=== PATIENT | male | born 1970 | race Caucasian/White ===

== ENCOUNTER 2020-10-18 | Outpatient (REF) | payer OTHER, SELFPAY ==
[2020-10-19 11:26] LABS: Creatinine Urine 137.45 mg/dL; Microalbum/Creatinine Ratio Ur 6.5 ug/mg cr
== END 2020-10-18 00:01 | disposition home or self-care (01) ==
LOC: HO.LNP
PROVIDERS: Visit Provider Family Medicine
DX: E11.9 Type 2 diabetes mellitus without complications (principal)
CPT/HCPCS: 82043

== ENCOUNTER 2020-10-19 10:34 | Outpatient (REF) | payer OTHER, SELFPAY | END 2020-10-19 10:35 | disposition home or self-care (01) | LOC: HO.LNP 10:34 | PROVIDERS: Visit Provider Family Medicine | DX: Z13.89 Encounter for screening for other disorder (principal) ==

== ENCOUNTER 2021-06-11 10:06 | Outpatient (REF) | payer OTHER, SELFPAY ==
[2021-06-11 11:41] LABS: Estimated Average Glucose 220 mg/dL; Hemoglobin A1c % 9.3 %
[2021-06-11 12:31] LABS: Alanine Aminotransferase 21 U/L (0-40); Albumin Level 4.5 g/dL (3.5-5.0); Alkaline Phosphatase 109 U/L (39-117); Anion Gap 10 (12-20); Aspartate Amino Transferase 18 U/L (5-37); Bilirubin Total 0.5 mg/dL (0.0-1.0); Blood Urea Nitrogen 16 mg/dL (9-16); Calcium 9.7 mg/dL (8.4-10.2); Carbon Dioxide 28 mmol/L (22-29); Chloride 105 mmol/L (96-108); Estimated Glomerular Filt Rate > 60; Glucose Random 275 mg/dL (60-115); Potassium 4.5 mmol/L (3.3-5.1); Sodium 138 mmol/L (135-145); Total Protein 7.5 g/dL (6.5-8.0)
== END 2021-06-11 10:07 | disposition home or self-care (01) ==
LOC: HO.WFDLDS 10:06
PROVIDERS: Visit Provider Family Medicine
DX: E11.65 Type 2 diabetes mellitus with hyperglycemia (principal)
CPT/HCPCS: 36415; 80053; 83036

== ENCOUNTER 2021-08-27 09:53 | Outpatient (REF) | payer OTHER, SELFPAY ==
[2021-08-27 12:51] LABS: Estimated Average Glucose 226 mg/dL; Hemoglobin A1c % 9.5 %
== END 2021-08-27 09:54 | disposition home or self-care (01) ==
LOC: HO.WFDLDS 09:53
PROVIDERS: Visit Provider Family Medicine
DX: Z00.00 Encounter for general adult medical examination without abnormal findings (principal); R73.01 Impaired fasting glucose
CPT/HCPCS: 36415; 83036

== ENCOUNTER → 2022-07-31 08:30 | Outpatient (BNVA) | payer OTHER, SELFPAY | PROVIDERS: PCP Family Medicine; Visit Provider Internal Medicine Endocrinology, Diabetes & Metabolism | DX: E11.65 Type 2 diabetes mellitus with hyperglycemia (principal) | CPT/HCPCS: 82947 ==

== ENCOUNTER 2022-08-01 10:22 | Outpatient (REF) | payer OTHER, SELFPAY ==
[2022-08-01 14:29] LABS: Anion Gap 12 (12-20); Blood Urea Nitrogen 20 mg/dL (9-16); Calcium 9.2 mg/dL (8.4-10.2); Carbon Dioxide 24 mmol/L (22-29); Chloride 103 mmol/L (96-108); Cholesterol 109 mg/dL; Estimated Glomerular Filt Rate > 60; Glucose Random 121 mg/dL (60-115); HDL Cholesterol 28 mg/dL; LDL Cholesterol Calculated 60 mg/dl; Potassium 4.1 mmol/L (3.3-5.1); Sodium 135 mmol/L (135-145); Triglycerides 108 mg/dL
[2022-08-01 14:44] LABS: Creatinine Urine 145.01 mg/dL; Microalbum/Creatinine Ratio Ur 8.2 ug/mg cr
[2022-08-07 17:33] LABS: Glutamic acid decarboxylase Ab <5 IU/mL (<5)
== END 2022-08-01 10:23 | disposition home or self-care (01) ==
LOC: HO.10HDL 10:22
PROVIDERS: Visit Provider Internal Medicine Endocrinology, Diabetes & Metabolism
DX: E11.65 Type 2 diabetes mellitus with hyperglycemia (principal)
CPT/HCPCS: 36415; 80048; 80061; 82043; 86341

== ENCOUNTER → 2022-11-12 07:36 | Outpatient (BNVA) | payer OTHER, SELFPAY | PROVIDERS: PCP Family Medicine; Visit Provider Internal Medicine Endocrinology, Diabetes & Metabolism | DX: E11.65 Type 2 diabetes mellitus with hyperglycemia (principal) | CPT/HCPCS: 82947; 83036 ==

== ENCOUNTER → 2022-11-17 09:33 | Outpatient (BNVA) | payer OTHER, SELFPAY | PROVIDERS: PCP Family Medicine; Visit Provider Dietitian, Registered | DX: E11.65 Type 2 diabetes mellitus with hyperglycemia (principal) | CPT/HCPCS: 97802 ==

== ENCOUNTER → 2022-12-11 09:03 | Outpatient (BNVA) | payer OTHER, SELFPAY | PROVIDERS: PCP Family Medicine; Visit Provider Dietitian, Registered | DX: E11.65 Type 2 diabetes mellitus with hyperglycemia (principal) | CPT/HCPCS: 97803 ==

== ENCOUNTER → 2023-02-17 08:14 | Outpatient (BNVA) | payer OTHER, SELFPAY | PROVIDERS: PCP Family Medicine; Visit Provider Internal Medicine Endocrinology, Diabetes & Metabolism | DX: E11.65 Type 2 diabetes mellitus with hyperglycemia (principal) | CPT/HCPCS: 82947; 83036 ==

== ENCOUNTER 2023-03-12 09:22 | Outpatient (AMB) | payer OTHER, SELFPAY ==
[2023-03-12 09:36] VITALS: BMI 35.1
--- NOTE | 2023-03-12 09:36 | A.OFFVIS_ITS ---
Intake VS Expanded 03/12/23 09:36 Height 5 ft 7 in Weight 223 lb 15.834 oz BMI 35.1 Intake Visit Reasons: DM2 Allergies No Known Allergies Allergy (Verified 03/16/23 09:09) HPI Nutrition Presentation Details Pt presents MNT f/u for T2DM Pt doing well, working on meal planning with good glycemic control Reports keeping physically active 1 hr 3 times a week at least low BG 0-1 x/wk , treats by following rule of 15 food frequency fluid intake: water , coffee/milk , juices diluted with water > 64 oz /d fried foods 0-1/x/wk fruits: 2-3 /d nons tarchy ve serving/d dairy 0-1/d protein: fish twice/wk, poultry , beef 1 x/wk starches : variety, reports including whole grain foods , 15-20 serving/d Most Recent Diabetes Results: Microalb/Creat Ratio 8.2 ug/mg cr 08/01/22 Cholesterol 109 mg/dL 08/01/22 HDL Cholesterol 28 mg/dL 08/01/22 Triglycerides 108 mg/dL 08/01/22 Creatinine 1.12 mg/dL (0.5-1.4) 08/01/22 Blood Urea Nitrogen 20 mg/dL (9-16) H 08/01/22 Sodium 135 mmol/L (135-145) 08/01/22 Potassium 4.1 mmol/L (3.3-5.1) 08/01/22 Chloride 103 mmol/L (96-108) 08/01/22 Carbon Dioxide 24 mmol/L (22-29) 08/01/22 Calcium 9.2 mg/dL (8.4-10.2) 08/01/22 [facility] Medical History No pertinent past medical history Surgical History No pertinent past surgical history Family History (Updated 03/16/23 @ 09:13 by Iman Carrillo MA) Father No problems noted. Mother Diabetes mellitus Brother No problems noted. Brother No problems noted. Sister No problems noted. Sister No problems noted. Daughter No problems noted. Daughter No problems noted. 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 Pt's set goal (Date: 11/17/2022 ): Reduce carbohydrate to 75 g at dinner following healthy plate method at follow up (Date:12/11/21 ): Per Pt met 100% Used wt : 105 kg (103 kg 12/11/21), 102 kg (02/2023) Est kcal as per MSJ: 2242 (40% carb, 30% fat/prot) Est fluid needs: 2625 ml/d (25 ml/kg bw) Rec fiber: increase to 8-10 g per day and gradually increase as tolerated , goal 35 g per day Rec Na: < 2000 mg /d Educate patient on: (R= Reviewed, V = verbalizes understanding N/R= Needs review N/A= not applicable) * Food sources of carbohydrates and serving adequate serving sizes : R V * Difference between complex carbohydrates and simple carbohydrates, role of fiber: R V * Differences between fats (MUFA/PUFA/saturated fats, trans fats) and food sources of various fats: R , V * Food sources of sodium and salt and healthy modifications for heart health and kidney health: R, v * Vitamins and minerals: R, V * How to interpret food labels: R , V * Healthy Plate method concept: R , V * Physical activity: benefits and precaution: R, V Patient Instructions: Continue following healthy plate method Keep hydrated by having water with meals Reduce intake of saturated fats in diet Treat low blood glucose by following rule of 15, carry glucose tablets with you, report low blood glucose to your doctor for further assessment. Coding Level of Care Code Nutr Indiv Subseq (87120) Diagnoses Diabetes type 2, uncontrolled E11.65 Time Spent (min) 30
== END 2023-03-12 09:49 | disposition home or self-care (01) ==
PROVIDERS: PCP Family Medicine; Visit Provider Dietitian, Registered
DX: E11.65 Type 2 diabetes mellitus with hyperglycemia (principal)

== ENCOUNTER → 2023-03-12 09:22 | Outpatient (BNVA) | payer OTHER, SELFPAY | PROVIDERS: Visit Provider Dietitian, Registered | DX: E11.65 Type 2 diabetes mellitus with hyperglycemia (principal); Z71.3 Dietary counseling and surveillance | CPT/HCPCS: 97803 ==

== ENCOUNTER 2023-03-16 08:45 | Outpatient (AMB) | payer OTHER, SELFPAY ==
[2023-03-16 09:05] VITALS: BP 126/74; PULSE 86; RESP 12; TEMP 36.4; O2SAT 98; BMI 34.8
--- NOTE | 2023-03-16 09:05 | MHC.PC.OV ---
Vital Signs 03/16/23 09:05 Height 5 ft 7 in Weight 222 lb 2 oz BMI 34.8 BP 126/74 Blood Pressure Location Lt brachial Position Sitting Respiration 12 Pulse 86 Pulse Source Pulse Oximeter Temp 97.6 F Temp Source Temporal Artery Scan Pulse Oximetry (%) 98 Oxygen Delivery Method Room Air Intake Visit Reasons: CPE with f/u labs and health maint. Replenishment Buyer Required: No Accompanied by: Self / Same As Patient Allergies No Known Allergies Allergy (Verified 03/16/23 09:09) Tobacco use date assessed: 07/17/22 Dental Screening Dental Screen Date: 03/16/23 Did you have a dental visit in the last 12 months?: No Did you have a dental problem in the last 6 months where you did not have access to dental care?: No Was dental information given to patient?: Yes HPI CPE with f/u labs and health maint. HPI Details 52 y/o male presents for a CPE with f/u labs and health maintenance. Had seen Dr. Louis 02/17/23 for his diabetes. A1c then 5.8%. He is being treated with glipzide, metformin and Trulicity. No recent labs to review. 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 He states he has been exercising mostly every day. He walks about 10 miles a day. He states he has not had a colonoscopy yet. He reports a skin tag on his R axilla which has been causing him some discomfort. [facility] Medical History No pertinent past medical history Surgical History No pertinent past surgical history Family History (Updated 03/16/23 @ 09:13 by Iman Carrillo MA) Father No problems noted. Mother Diabetes mellitus Brother No problems noted. Brother No problems noted. Sister No problems noted. Sister No problems noted. Daughter No problems noted. Daughter No problems noted. 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 Liam Momin, Ericka Montesinos, Moses Anand and colleagues, with an educational tai from [employer]. Review of Systems Const Denies chills, Denies fatigue, Denies fever(s), Denies headache(s) and Denies weakness Eyes Denies change in vision ENT Denies dizziness, Denies headache(s), Denies hearing loss, Denies nasal congestion, Denies sinus pain, Denies sinus pressure and Denies sore throat Card Denies chest pain, Denies lightheadedness, Denies dyspnea and Denies other (palpitations) Resp Denies cough, Denies dyspnea and Denies wheezing GI Denies abdominal pain, Denies melena, Denies hematochezia, Denies change in bowel habits, Denies dyspepsia and Denies nausea Denies hematuria and Denies dysuria Musc Denies abnormal gait, Denies myalgias, Denies arthralgias, Denies numbness and Denies tingling Skin/Breast Denies rash, Denies unusual bruising and Denies wounds Neuro Denies abnormal gait, Denies dizziness, Denies headache(s), Denies memory loss, Denies numbness, Denies Sensory deficit (Neuro), Denies tingling and Denies weakness Psych Denies anxiety, Denies depression and Denies memory loss Endo Denies cold intolerance, Denies fatigue, Denies heat intolerance, Denies polydipsia and Denies polyuria Jesus/Lymph Denies easy bleeding and Denies easy bruising Aller/Immun Denies wheezing Physical exam (Primary Care) Vital Signs: Last Vital Signs Temp 97.6 F 03/16/23 09:05 Pulse 86 03/16/23 09:05 Resp 12 03/16/23 09:05 BP 126/74 03/16/23 09:05 Pulse Ox 98 03/16/23 09:05 Oxygen Delivery Method Room Air 03/16/23 09:05 BMI result Body Mass Index 34.8 Tobacco/Smoking Status: Tobacco use Status Tobacco use date assessed 07/17/22 03/16/23 09:13 Patient Tobacco Use Status Former Tobacco user 03/16/23 09:13 Tobacco use type Cigarette 03/16/23 09:13 e-Cigarette/Vaping Use Never Used 03/16/23 09:13 Thrive Assessment: Date of Thrive Assessment Date Thrive assessed 07/17/22 03/16/23 09:13 Const General: no acute distress, well developed, alert and awake Nutritional Appearance: well nourished Orientation/consciousness: patient oriented x3 HENMT Head: Yes normocephalic and Yes atraumatic Ears: hearing grossly normal bilaterally and TM's normal bilaterally General nose exam: Normal external nose present and Normal nares present Mouth: Normal oral and palatal mucosa present and moist mucous membranes Teeth and gingiva: dentition normal Throat: Yes posterior oropharynx normal Eyes General: appearance normal, both eyes and all related structures Pupils: Equal, round and reactive pupils present and Pupil accommodation reflex normal EOM: EOMs intact bilaterally Neck Neck: Yes normal visual inspection, Yes no lymphadenopathy and Yes trachea midline Thyroid: Thyroid normal Carotids: no bruits Lymphatic: no lymphadenopathy noted Chest Chest palpation & inspection: normal inspection of the chest Resp Effort & Inspection: normal respiratory effort Auscultation: clear to auscultation bilaterally Cardio Rate: regular rate Rhythm: regular rhythm Heart sounds: S1 normal heart sound present, S2 normal heart sound present, no gallops, no murmurs and no rubs Bruits: no abdominal aortic bruits and no carotid bruits GI Palpation (GI): No Abdominal aortic bruit present, Soft to palpation, nontender, No hepatosplenomegaly present and No Rebound tenderness present Auscultation: normal bowel sounds General: Yes no CVA tenderness Back/Spine/Pelvis Back: no CVA tenderness Cervical Spine: cervical ROM normal and No Cervical spine tenderness Thoracic/Lumbar Spine: thoraco-lumbar ROM normal, No pain with thoraco-lumbar ROM, No thoracic spinal tenderness and No lumbar spinal tenderness Skin Other: 1cm in diameter skin tag at anterior aspect of R axilla Lesions: no lesions Rashes: no rashes Trauma: no lacerations or abrasions Wounds: no wounds Nails: normal Neuro General: patient oriented x3 Cranial nerves: Yes Equal, round and reactive pupils present Cognition (Neuro): normal cognition Gait exam (Neuro): Normal gait present Motor exam (neuro): 5/5 motor strength present throughout Sensory Exam: No Sensory deficit (Neuro) Deep tendon reflexes (DTR's): Right patellar reflex intensity grade: 2+ and Left patellar reflex intensity grade: 2+ Extrem General: Yes normal to inspection and No edema Psych Appearance: grossly normal Affect: normal affect Attitude: cooperative Thought process: Normal thought process present Assessment and Plan Assessment & Plan (1) Adult general medical exam: Code(s): Z00.00 - Encounter for general adult medical examination without abnormal findings Plan: 52-year-old male presents for complete physical Encouraged healthy diet with active lifestyle and plenty of exercise (2) Diabetes type 2, controlled: Code(s): E11.9 - Type 2 diabetes mellitus without complications Plan: Last A1c was 5.8%. Good control. Goal is less than 7.0% Continue current medication regimen Continue diabetic diet and exercise Follow-up with Dr. Louis Gets regular eye exams (3) Skin tag: Code(s): L91.8 - Other hypertrophic disorders of the skin Plan: He can schedule cryotherapy in about 2 months (4) Screening for colon cancer: Code(s): Z12.11 - Encounter for screening for malignant neoplasm of colon Plan: Referred to GI (5) Screening for prostate cancer: Code(s): Z12.5 - Encounter for screening for malignant neoplasm of prostate Plan: Check PSA Orders: Orders Comprehensive Coleman. Panel Fast Today Z00.00 - Encounter for general adult medical examination without abnormal findings Prostate Specific Antigen Scr Today Z12.5 - Encounter for screening for malignant neoplasm of prostate Lipid Panel Today Z00.00 - Encounter for general adult medical examination without abnormal findings TSH reflex Free T4 Today Z00.00 - Encounter for general adult medical examination without abnormal findings UA and rflx microscopic Today Z00.00 - Encounter for general adult medical examination without abnormal findings Referrals Gastroenterology Referral Z12.11 - Encounter for screening for malignant neoplasm of colon Coding Level of Care Code Est Pt Level 3 (00061) Est Pt Prev Care 40-64y(37281) Diagnoses Adult general medical exam Z00.00 Diabetes type 2, controlled E11.9 Skin tag L91.8 Screening for colon cancer Z12.11 Screening for prostate cancer Z12.5
== END 2023-03-16 10:20 | disposition home or self-care (01) ==
PROVIDERS: Visit Provider Family Medicine
DX: Z00.00 Encounter for general adult medical examination without abnormal findings (principal); E11.9 Type 2 diabetes mellitus without complications; L91.8 Other hypertrophic disorders of the skin; Z12.11 Encounter for screening for malignant neoplasm of colon; Z12.5 Encounter for screening for malignant neoplasm of prostate
CPT/HCPCS: 99396

== ENCOUNTER 2023-03-23 07:02 | Outpatient (REF) | payer OTHER, SELFPAY ==
[2023-03-23 10:36] LABS: Appearance Urine Clear; Color Urine Yellow; Glucose Urine UA Negative (Negative); Leukocyte Esterase Urine Negative (Negative); Nitrite Urine Negative (Negative); PH 5.5 (5.0-9.0); Urine Blood Negative (Negative); Urine Ketones Negative (Negative); Urine Protein Negative (Neg-Trace)
[2023-03-23 10:56] LABS: Alanine Aminotransferase 21 U/L (0-40); Albumin Level 4.5 g/dL (3.5-5.0); Alkaline Phosphatase 66 U/L (39-117); Anion Gap 12 (12-20); Aspartate Amino Transferase 24 U/L (5-37); Bilirubin Total 0.7 mg/dL (0.0-1.0); Blood Urea Nitrogen 22 mg/dL (9-16); Calcium 9.7 mg/dL (8.4-10.2); Carbon Dioxide 27 mmol/L (22-29); Chloride 101 mmol/L (96-108); Cholesterol 112 mg/dL; Estimated Glomerular Filt Rate > 60; Glucose Fasting 152 mg/dL (60-99); HDL Cholesterol 34 mg/dL; LDL Cholesterol Calculated 69 mg/dl; Potassium 4.5 mmol/L (3.3-5.1); Sodium 135 mmol/L (135-145); Total Protein 7.7 g/dL (6.5-8.0); Triglycerides 46 mg/dL
[2023-03-23 11:17] LABS: Prostate Specific Antigen Scr 0.68 ng/mL (<0.05-4.0); TSH reflex Free T4 1.36 uIU/mL (0.32-4.0)
== END 2023-03-23 07:03 | disposition home or self-care (01) ==
LOC: HO.10HDL 07:02
PROVIDERS: Visit Provider Family Medicine
DX: Z00.00 Encounter for general adult medical examination without abnormal findings (principal); Z12.5 Encounter for screening for malignant neoplasm of prostate
CPT/HCPCS: 36415; 80053; 80061; 81003; 84153; 84443

== ENCOUNTER 2023-06-15 07:29 | Outpatient (AMB) | payer OTHER, SELFPAY ==
--- NOTE | 2023-06-15 07:54 | MHC.OFFVIS ---
Intake Vital Signs 06/15/23 07:56 Height 5 ft 7 in Weight 221 lb BMI 34.6 BP 140/71 H Blood Pressure Location Lt brachial Position Sitting Pulse 93 Intake Visit Reasons: Colonoscopy Screening Intake Note: New consult for 1st colonoscopy screening Patient denies any GI issues. Diamond Expert Required: No Accompanied by: Self / Same As Patient Allergies No Known Allergies Allergy (Verified 06/15/23 07:54) Medication List - Last Reconciled 06/15/23 by Lizbeth Barahona PA-C atorvastatin 40 mg PO DAILY 90 days blood-glucose sensor (FreeStyle Theo 3 Sensor device) As directed dulaglutide (Trulicity) 1.5 mg (0.5 mL) subcut QWEEK gemfibrozil 600 mg PO BID glipizide 10 mg (2 x 5 mg) PO BID 90 days metformin 1000 mg a.m. and 750 mg p.m. orally 2 times a day; 90 days naproxen 500 mg PO BID PRN 30 days HPI HPI Comments History of Present Illness Details A 53-year-old male referred for screening colonoscopy-he has no GI or general come He has normal bowel pattern. Has a good appetite No respiratory or cardiac issues No nausea, vomiting, hematemesis, hematochezia fever or chills PFSH Medical History No pertinent past medical history Surgical History No pertinent past surgical history Family History Father No problems noted. Mother Diabetes mellitus Brother No problems noted. Brother No problems noted. Sister No problems noted. Sister No problems noted. Daughter No problems noted. Daughter No problems noted. 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 [employer] Current occupational exposures/hazards: No Cognitive needs: No Hearing needs: No Vision needs: No Review of Systems Const Details: All systems reviewed and are negative All systems reviewed & are unremarkable except as noted in HPI and below Physical Exam Vital Signs: Last Vital Signs Pulse 93 06/15/23 07:56 BP 140/71 H 06/15/23 07:56 BMI result Body Mass Index 34.6 Const General: cooperative, healthy appearing, comfortable and no acute distress Orientation/consciousness: patient oriented x3 Limitations: no limitations Resp Effort & Inspection: normal respiratory effort and able to speak in complete sentences Auscultation: clear to auscultation bilaterally Cardio Rate: regular rate Rhythm: regular rhythm Heart sounds: S1 normal heart sound present and S2 normal heart sound present GI Palpation (GI): Soft to palpation and nontender Auscultation: normal bowel sounds Neuro General: patient oriented x3 Extrem General: Yes full ROM Psych Appearance: grossly normal and well kempt Mental Status: mental status grossly normal Speech and movement: Normal speech and movement present and Clear speech present Affect: normal affect Attitude: cooperative Thought process: Normal thought process present Thought content: Normal thought content present Insight: Good insight present (Psych) Assessment & Plan Assessment & Plan (1) Screening for colon cancer: Code(s): Z12.11 - Encounter for screening for malignant neoplasm of colon Orders: Orders Colonoscopy - GI Use Only Today Z12.11 - Encounter for screening for malignant neoplasm of colon Medications: New bisacodyl (Dulcolax (bisacodyl)) Day before procedure, prep day Take 4 tablets by mouth upon awakening followed by large glass of water 20 mg (4 x 5 mg) PO ONCE 1 day 4 tabs 0RF colonoscopy prep Z12.11 - Encounter for screening for malignant neoplasm of colon polyethylene glycol 3350 (Miralax) Take as directed by mouth the day before your procedure. 238 grams PO ONCE 1 day PRN 238 grams 0RF laxative effect Patient Instructions: Very pleasant 53-year-old DM Gent Index screening colonoscopy MG split prep discussed medications-omit metformin evening before procedure as well as no diabetes medications morning of procedure. Encouraged to call questions or concerns Appreciate the opportunity assist in the care this pleasant Gent Coding Level of Care Code New Pt Level 3 (86114) Diagnoses Screening for colon cancer Z12.11 Time Spent (min) 25
[2023-06-15 07:56] VITALS: BP 140/71; PULSE 93; BMI 34.6
== END 2023-06-15 09:03 | disposition home or self-care (01) ==
PROVIDERS: PCP Family Medicine; Visit Provider Physician Assistant
DX: Z01.818 Encounter for other preprocedural examination (principal); Z12.11 Encounter for screening for malignant neoplasm of colon
CPT/HCPCS: 99202

== ENCOUNTER → 2023-06-15 07:29 | Outpatient (BNVA) | payer OTHER, SELFPAY | PROVIDERS: PCP Family Medicine; Visit Provider Physician Assistant ==

== ENCOUNTER 2023-06-22 14:20 | Outpatient (AMB) | payer OTHER, SELFPAY ==
[2023-06-22 14:25] VITALS: BP 132/82; PULSE 93; O2SAT 97; BMI 35.2
--- NOTE | 2023-06-22 14:25 | A.OFFPC_ITS ---
Vital Signs 06/22/23 14:25 Height 5 ft 7 in Weight 224 lb 8 oz BMI 35.2 BP 132/82 Blood Pressure Location Lt brachial Position Sitting Pulse 93 Pulse Oximetry (%) 97 Oxygen Delivery Method Room Air Intake Visit Reasons: 2 month f/u DM Intake Note: Patient is here to follow up on his diabetes today. Allergies No Known Allergies Allergy (Verified 06/22/23 14:28) Tobacco use date assessed: 06/22/23 HPI 2 month f/u DM HPI Details 53 y/o male presents to f/u diabetes. Last A1c had been 5.8%. A1c today 06/22/23 is 6.3%. He is on metformin and glipizide 10mg b.i.d. Also on Trulicity 1.5mg. Pt reports morning blood sugars have been in the 80s and 90s. [facility] Medical History No pertinent past medical history Surgical History No pertinent past surgical history Family History Father No problems noted. Mother Diabetes mellitus Brother No problems noted. Brother No problems noted. Sister No problems noted. Sister No problems noted. Daughter No problems noted. Daughter No problems noted. 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 Liam Momin, Ericka Montesinos, Moses Anand and colleagues, with an educational tai from [employer]. Review of Systems Const Denies chills, Denies fatigue, Denies fever(s), Denies headache(s) and Denies weakness ENT Denies dizziness and Denies headache(s) Card Denies chest pain, Denies lightheadedness, Denies dyspnea and Denies other (Palpitations) Resp Denies cough, Denies dyspnea, Denies wheezing and Denies other ( shortness of breath) Musc Denies numbness and Denies tingling Neuro Denies dizziness, Denies headache(s), Denies numbness, Denies tingling, Denies paresthesias and Denies weakness Psych Denies anxiety and Denies depression Endo Denies fatigue Aller/Immun Denies wheezing Physical exam (Primary Care) Vital Signs: Last Vital Signs Pulse 93 06/22/23 14:25 BP 132/82 06/22/23 14:25 Pulse Ox 97 06/22/23 14:25 Oxygen Delivery Method Room Air 06/22/23 14:25 BMI result Body Mass Index 35.2 Tobacco/Smoking Status: Tobacco use Status Tobacco use date assessed 06/22/23 06/22/23 14:29 Patient Tobacco Use Status Former Tobacco user 06/22/23 14:27 Tobacco use type Cigarette 06/22/23 14:27 e-Cigarette/Vaping Use Never Used 06/22/23 14:27 Thrive Assessment: Date of Thrive Assessment Date Thrive assessed 07/17/22 06/22/23 14:27 Const General: no acute distress and well developed Nutritional Appearance: well nourished Orientation/consciousness: patient oriented x3 HENMT Head: Yes normocephalic and Yes atraumatic Eyes General: appearance normal, both eyes and all related structures Pupils: Equal, round and reactive pupils present EOM: EOMs intact bilaterally Resp Effort & Inspection: normal respiratory effort Auscultation: clear to auscultation bilaterally Cardio Rate: regular rate Rhythm: regular rhythm Heart sounds: S1 normal heart sound present, S2 normal heart sound present, no gallops, no murmurs and no rubs Neuro General: patient oriented x3 and gait normal Cranial nerves: Yes Equal, round and reactive pupils present Psych Affect: normal affect Results AMB Hemoglobin A1c AMB Hemoglobin A1c 6.3 % Last Edit by Dania Lopez CMA on 06/22/23 14:44 Results Reviewed Results Reviewed: Laboratory Last Values Hgb A1c (Clinic) 6.3 % (4.0-6.0) H 06/22/23 14:43 Assessment and Plan Assessment & Plan (1) Diabetes type 2, controlled: Code(s): E11.9 - Type 2 diabetes mellitus without complications Plan: A1c?6.3%?is?significantly?increased?from?his?prior?A1c?in?January? which?was?5.8%.??Goal?is?less?than?7.0%. Significantly?increased?but?he?notes?that?he?has?been?much?busier?at?work.??He?h as?been?working?on?this?more?recently?and?his?Theo?is?showing?good?control. Encouraged?diabetic?diet?and?consistency?with?exercise Most?recent?numbers?would?indicate?that?he?will?improve?without?any?changes?in?m edication. Continue?current?medication?regimen?and?follow-up?in?3?months. Patient?had?a?recent?eye?exam - will?request?results Orders: Orders AMB Hemoglobin A1c Today Z13.9 - Encounter for screening, unspecified Coding Level of Care Code Est Pt Level 3 (54157) Diagnoses Diabetes type 2, controlled E11.9
== END 2023-06-22 14:52 | disposition home or self-care (01) ==
PROVIDERS: PCP Family Medicine; Visit Provider Family Medicine
DX: E11.9 Type 2 diabetes mellitus without complications (principal)
CPT/HCPCS: 83036; 99213

== ENCOUNTER 2023-10-19 08:20 | Outpatient (AMB) | payer OTHER, SELFPAY ==
[2023-10-19 08:22] VITALS: BP 122/76; PULSE 78; O2SAT 99; BMI 36.0
--- NOTE | 2023-10-19 08:22 | MHC.PC.OV ---
Vital Signs 10/19/23 08:22 Height 5 ft 7 in Weight 230 lb BMI 36.0 BP 122/76 Blood Pressure Location Lt brachial Position Sitting Pulse 78 Pulse Oximetry (%) 99 Oxygen Delivery Method Room Air Intake Visit Reasons: f/u diabetes Intake Note: Patient is following up on diabetes. Patient is requesting an alternative for his Trulicity 1.75 Allergies No Known Allergies Allergy (Verified 10/19/23 08:24) Medication List - Last Reconciled 10/19/23 by Kerwin Stockton MD atorvastatin 40 mg PO DAILY 90 days bisacodyl (Dulcolax (bisacodyl)) 20 mg (4 x 5 mg) PO ONCE 1 day blood-glucose sensor (FreeStyle Theo 3 Sensor device) As directed dulaglutide (Trulicity) 1.5 mg (0.5 mL) subcut QWEEK gemfibrozil 600 mg PO BID glipizide 10 mg (2 x 5 mg) PO BID 90 days metformin 1000 mg a.m. and 750 mg p.m. orally 2 times a day; 90 days naproxen 500 mg PO BID PRN 30 days polyethylene glycol 3350 (Miralax) 238 grams PO ONCE PRN 1 day Tobacco use date assessed: 10/19/23 Dental Screening Dental Screen Date: 10/19/23 HPI f/u diabetes HPI Details 53 y/o male presents to f/u diabetes. Last A1c 06/22/23 6.3%. He is on metformin and glipizide 10mg b.i.d. Also on Trulicity 1.5mg. A1c today 10/19/23 is 7.3%. He reports he has been out of his Trulicity x2 months. [facility] Medical History Diabetes Surgical History No pertinent past surgical history Family History Father No problems noted. Mother Diabetes mellitus Brother No problems noted. Brother No problems noted. Sister No problems noted. Sister No problems noted. Daughter No problems noted. Daughter No problems noted. 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 1. Little interest or pleasure in doing things: not at all 2. Feeling down, depressed, or hopeless: not at all 3. Trouble falling or staying asleep, or sleeping too much: not at all 4. Feeling tired or having little energy: not at all 5. Poor appetite or overeating: not at all 6. Feeling bad about yourself - or that you are a failure or have let yourself or your family down: not at all 7. Trouble concentrating on things, such as reading the newspaper or watching television: not at all 8. Moving or speaking so slowly that other people could have noticed. Or the opposite - being so fidgety or restless that you have been moving around a lot more than usual: not at all 9. Thoughts that you would be better off or of hurting yourself in some way: not at all Total score: 0 Depression Screening Interpretation: Negative Depression Screening Done: Yes Source: Developed by Drs. Liam Momin, Ericka Montesinos, Moses Anand and colleagues, with an educational tai from [employer]. Thrive Questionnaire Date Thrive assessed: 10/19/23 I am a: Patient What is your living situation today?: I have a steady place to live Within the past 12 months, did the food you bought not last and you didn't have the money to get more?: Never true Within the past 12 months, did you worry whether your food would run out before you got money to buy more?: Never true Do you have trouble paying for medicines?: No Do you have trouble getting transportation to medical appointments?: No Do you have trouble paying your heating and electricity bill?: No Do you have trouble taking care of your child, family member or friend?: No Do you have trouble with day-to-day activities such as bathing, preparing meals, shopping, managing finances, etc.?: No Are you currently unemployed and looking for a job?: No Are you interested in more education?: No THRIVE Score: 0 AUDIT C Alcohol Use Questionnaire (AUDIT-C) 1. How often do you have a drink containing alcohol?: 2-3 times a week 2. How many drinks containing alcohol do you have on a typical day when you are drinking?: 1 or 2 3. How often do you have six or more drinks on one occasion?: Never Total Score: 3 MELINA-7 AMB Questionnaire MELINA-7 Date MELINA - 7 assessed: 10/19/23 Feeling nervous, anxious, or on edge: 0 = Not at all Not being able to stop or control worryin = Not at all Worrying too much about different things: 0 = Not at all Trouble relaxin = Not at all Being so restless that it is hard to sit still: 0 = Not at all Becoming easily annoyed or irritable: 0 = Not at all Feeling afraid as if something awful might happen: 0 = Not at all Total MELINA-7 score (0-4 normal; 5-9 mild; 10-14 moderate; 15-21 severe): 0 Source: Developed by Drs. Liam Momin, Ericka Montesinos, Moses Anand and colleagues, with an educational tai from [employer]. Review of Systems Const Denies chills, Denies fatigue, Denies fever(s), Denies headache(s) and Denies weakness ENT Denies dizziness and Denies headache(s) Card Denies chest pain, Denies lightheadedness, Denies dyspnea and Denies other (Palpitations) Resp Denies cough, Denies dyspnea, Denies wheezing and Denies other ( shortness of breath) Musc Denies numbness and Denies tingling Neuro Denies dizziness, Denies headache(s), Denies numbness, Denies tingling, Denies paresthesias and Denies weakness Psych Denies anxiety and Denies depression Endo Denies fatigue Aller/Immun Denies wheezing Physical exam (Primary Care) Vital Signs: Last Vital Signs Pulse 78 10/19/23 08:22 BP 122/76 10/19/23 08:22 Pulse Ox 99 10/19/23 08:22 Oxygen Delivery Method Room Air 10/19/23 08:22 BMI result Body Mass Index 36.0 Tobacco/Smoking Status: Tobacco use Status Tobacco use date assessed 10/19/23 10/19/23 08:28 Patient Tobacco Use Status Former Tobacco user 10/19/23 08:28 Tobacco use type Cigarette 10/19/23 08:28 e-Cigarette/Vaping Use Never Used 10/19/23 08:28 PHQ-9: PHQ-9 Score PHQ-9: Total score 0 10/19/23 08:46 Depression Screening Interpretation: Negative Thrive Assessment: Date of Thrive Assessment Date Thrive assessed 10/19/23 10/19/23 08:35 Const General: no acute distress and well developed Nutritional Appearance: well nourished Orientation/consciousness: patient oriented x3 HENMT Head: Yes normocephalic and Yes atraumatic Eyes General: appearance normal, both eyes and all related structures Pupils: Equal, round and reactive pupils present EOM: EOMs intact bilaterally Resp Effort & Inspection: normal respiratory effort Auscultation: clear to auscultation bilaterally Cardio Rate: regular rate Rhythm: regular rhythm Heart sounds: S1 normal heart sound present, S2 normal heart sound present, no gallops, no murmurs and no rubs Neuro General: patient oriented x3 and gait normal Cranial nerves: Yes Equal, round and reactive pupils present Psych Affect: normal affect Results AMB Hemoglobin A1c AMB Hemoglobin A1c 7.3 % Last Edit by Dania Lopez CMA on 10/19/23 08:45 Results Reviewed Results Reviewed: Laboratory Last Values Hgb A1c (Clinic) 7.3 % (4.0-6.0) H 10/19/23 08:43 Assessment and Plan Assessment & Plan (1) Diabetes type 2, controlled: Code(s): E11.9 - Type 2 diabetes mellitus without complications Plan: A1c?worsened?again?and?is?now?at?7.3%.??Goal?is?less?than?7% He?notes?that?he?has?been?unable?to?get?Trulicity. Will?switch?Trulicity?to?Ozempic Continue?metformin?and?glipizide?as?prescribed Will?follow-up?in?a?few?months Last?diabetic?eye?exam?was?in?March?2022.??Up-to-date. Orders: Orders AMB Hemoglobin A1c Today Z13.9 - Encounter for screening, unspecified Medications: New semaglutide (Ozempic) 1 mg (0.75 mL) subcut QWEEK 3 mL 3RF 28 days Discontinued dulaglutide (Trulicity) Discontinued Reason: Doctor's Order 1.5 mg (0.5 mL) subcut QWEEK 2 mL 5RF Coding Level of Care Code Est Pt Level 3 (81452) Diagnoses Diabetes type 2, controlled E11.9
== END 2023-10-19 08:56 | disposition home or self-care (01) ==
PROVIDERS: PCP Family Medicine; Visit Provider Family Medicine
DX: E11.9 Type 2 diabetes mellitus without complications (principal)
CPT/HCPCS: 83036; 99213

== ENCOUNTER 2023-10-21 06:38 | Day surgery (SDC) | payer OTHER, SELFPAY ==
[2023-10-16 11:31] VITALS: BMI 34.6
[2023-10-21 07:06] VITALS: BP 135/78; PULSE 62; RESP 18; TEMP 36.1; O2SAT 97; BMI 34.9
[2023-10-21 07:19] LABS: Glucose, Whole Blood 193 mg/dL (60-115)
--- NOTE | 2023-10-21 07:40 | MHC.SHP ---
Pre-Procedural Eval Section A - 24 Hr Update-Section A only Date of Service: 10/21/23 Section B - Complete if H&P > 30 days Chief Complaint: screening Relevant Family History (Specify if Yes): No Relevant Social History: None Present Medications: see Short Stay Collaborative assessment Medical History: Significant History (HTN, HLP) History of Previous Operations: No relevant previous surgery Allergies: Allergies Allergy/AdvReac Type Severity Reaction Status Date / Time No Known Allergies Allergy Verified 10/19/23 08:24 Review of Systems Sugical H&P ROS: Negative: Constitution, Cardiovascular, Respiratory, Neurological, Psychiatric, Hem-Onc, Allergic/Immunologic, Gastrointestinal, Genitourinary, Musculoskeletal, Integumentary, Endocrine and Eyes/Ears/Nose/Throat Exam Surgical H&P Exam: Normal: HEENT, Normal: Heart, Normal: Lungs, Normal: Extremities, Normal: Abdomen, Normal: Skin and Normal: Neurological Plan Diagnosis/Plan: Unchanged I have reviewed the history and physical and performed a pertinent physical examination on my patient. No changes have occurred unless specified. Time Spent With Patient Time: Total time managing care of this patient today ____ minutes.
[2023-10-21 07:45] VITALS: BMI 34.9
--- NOTE | 2023-10-21 07:45 | HO.ANESPROP2 ---
HPI - Anesthesia Eval Consult details Narrative: 53 yo male patient for Colonoscopy PMFSH Active Problems Active Problems: All Active Problems (Updated 10/21/23 @ 07:46 by Dalia Abarca MD) Skin tag (Acute) Screening for prostate cancer (Acute) Screening for colon cancer (Acute) Adult general medical exam (Acute) Sciatica (Acute) Diabetes type 2, uncontrolled (Acute) Tendonitis (Acute) Elevated blood pressure reading without diagnosis of hypertension (Acute) Diabetes type 2, controlled (Acute). Not started ozempic yet. Last dose of Trulicity 08/22(on backorder) Past Medical History Medical History Diabetes Family History Family History Father No problems noted. Mother Diabetes mellitus Brother No problems noted. Brother No problems noted. Sister No problems noted. Sister No problems noted. Daughter No problems noted. Daughter No problems noted. Family history of problems with anesthesia: No Surgical History Surgical History No pertinent past surgical history History of Problems with Anesthesia: No Social History Social History Household Members: Spouse and Family Household Members Other:: , step daughter, mother in law Housing: House Alcohol intake: current Alcohol intake frequency: holidays/special occasions only Patient Tobacco Use Status: Former Tobacco user Quit Date: >5yrs ago Tobacco use type: Cigarette e-Cigarette/Vaping Use: Never Used Second Hand Smoke Exposure: No Use of substances other than those prescribed or required for medical reasons: No Are you DNR?: No Advance Directives: No Advance Directives Information Provided: Yes service: No Current occupational status: employed 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 Current occupational exposures/hazards: No Cognitive needs: No Hearing needs: No Vision needs: No Meds Allergies Allergy/AdvReac Type Severity Reaction Status Date / Time No Known Allergies Allergy Verified 10/19/23 08:24 Active Medications: Current Medications Lactated Ringer's (Lr) 1,000 mls @ 50 mls/hr IVCONT .Q20H JOSE Exam Height,Weight and Vital Signs: Height 5 ft 7 in Weight 101.151 kg Last Vital Signs Temp 96.9 F 10/21/23 07:06 Pulse 62 10/21/23 07:06 Resp 18 10/21/23 07:06 BP 135/78 10/21/23 07:06 Pulse Ox 97 10/21/23 07:06 O2 Del Method Room Air 10/21/23 07:06 Pertinent Lab Results Pertinent Lab Results: Laboratory Tests 10/21/23 07:14 POC Glucose 193 H Airway Mallampati Class: III TM Dist: >3cm Neck ROM: Full Loose/Missing/Broken Teeth: No (Denies broken, loose, missing teeth) Heart: RRR Lungs: CTAB Other: Contact lens in place. Naps with contacts in place at home. No issiues Assessment and Plan Assessment Anesthesia Assessment: Anesthesia Plan Discussed and Chart Reviewed Final Anesthetic Review Family History of Problems with Anesthesia: No History of Problems with Anesthesia: No NPO: Yes ASA Class: II Final Preanesthetic Review: No Changes in Pt Med Stat, Meds/Allgs Chart Reviewed, Consent Obtained/Reviewed and Anes Risks/Benef Reviewed Patient Risk: Intermediate Procedure Risk: Low Assessment/Block/Sedation in SS: Assess/Block/Sedation-SS Anesthetic Plan Anesthetic Plan: TIVA Disposition: Standard PACU
[2023-10-21] MEDS: Lactated Ringers 1,000 ML 50 ML IVCONT (07:48)
--- NOTE | 2023-10-21 08:38 | W.PM.OPN ---
Operative Note Operative Note Date of Service: 10/21/23 Narrative: Operative Information Procedure Description: Colonoscopy Indication: screening Anesthesia: MAC COLONOSCOPY Instrument: Olympus variable stiffness pediatric scope 190L Colonoscopy Monitoring: Vital signs and clinical assessment, continuous EKG monitoring, Pulse oximetry, Carbon Dioxide monitoring and blood pressure monitoring were done throughout the procedure. Colon withdrawal time was 10 minutes. Procedure: The patient was placed in the left lateral decubitis position and pre-procedure medications were administered. After a digital rectal examination of the ano-rectum, the video colonoscope was inserted into the rectum and advanced through the colon to the cecum/TI. The colonoscope was slowly withdrawn in a retrograde panoramic fashion and the colon mucosa was carefully examined including a retroflexed view of the rectum. Findings and interventions are described below. Procedure Difficulty: easy Findings: Terminal Ileum-normal Cecum:normal Ascending Colon: normal Transverse Colon -normal Descending Colon:normal Sigmoid Colon: normal Rectum: Retroflexion with small internal hemorrhoids, grade I, 10 mm sessile polyp removed with cold snare Anorectum - normal Colon preparation: [place] Bowel Preparation Scale Right colon; 1 Transverse colon: 1-2 Left colon; 1-2 (0 = Unprepared colon segment with mucosa not seen due to solid stool that cannot be cleared. 1 = Portion of mucosa of the colon segment seen, but other areas of the colon segment not well seen due to staining, residual stool and/or opaque liquid. 2 = Minor amount of residual staining, small fragments of stool and/or opaque liquid, but mucosa of colon segment seen well. 3 = Entire mucosa of colon segment seen well with no residual staining, small fragments of stool or opaque liquid) Impression and Post Procedure Diagnosis: polyp internal hemorrhoids Plan: High fiber diet leaflet Avoid straining at stool, epsom salts and sitz bath, anusol supps or cream Repeat Colonoscopy in 6-12 months due to fair to poor prep or earlier if clinically indicated--check compliance with prep, might need 2 d prep next time Above findings were reviewed with the patient and relevant handouts were provided if indicated.
[2023-10-21 08:42] VITALS: BP 110/43; PULSE 76; RESP 16; TEMP 36.1; O2SAT 94
[2023-10-21 08:57] VITALS: BP 128/92; PULSE 70; RESP 20; TEMP 36.1; O2SAT 99
== END 2023-10-21 09:16 | disposition home or self-care (01) ==
PROVIDERS: PCP Family Medicine; Visit Provider Internal Medicine Gastroenterology
PROC: 0DJD8ZZ Inspection of Lower Intestinal Tract, Via Natural or Artificial Opening Endoscopic (ICD-10-PCS; CPT 45378; principal; 2023-10-21 08:20)
DX: Z12.11 Encounter for screening for malignant neoplasm of colon (principal); D12.8 Benign neoplasm of rectum; K64.0 First degree hemorrhoids; E11.9 Type 2 diabetes mellitus without complications; Z79.84 Long term (current) use of oral hypoglycemic drugs
CPT/HCPCS: 45385; 82947; 88305; J2704

== ENCOUNTER → 2023-10-21 06:38 | Outpatient (BNV) | payer OTHER, SELFPAY | PROVIDERS: PCP Family Medicine; Visit Provider Internal Medicine Gastroenterology | DX: Z12.11 Encounter for screening for malignant neoplasm of colon (principal); K63.5 Polyp of colon; K64.8 Other hemorrhoids | CPT/HCPCS: 45385 ==

== ENCOUNTER 2023-11-04 07:09 | Outpatient (AMB) | payer OTHER, SELFPAY ==
--- NOTE | 2023-11-04 07:31 | A.OFFVIS_ITS ---
Intake Vital Signs 11/04/23 07:39 Height 5 ft 7 in Weight 222 lb BMI 34.8 BP 119/65 Blood Pressure Location Lt brachial Position Sitting Pulse 83 Intake Visit Reasons: s/p colon Intake Note: Patient follow up for Colonoscopy result Patient denies any GI issues. 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 and 750 mg p.m. orally 2 times a day; 90 days semaglutide (Ozempic) 1 mg (0.75 mL) subcut QWEEK 28 days HPI HPI Comments History of Present Illness Details A 53-year-old male follows up after recent index screening colonoscopy with polypectomy He tolerated procedures well He has no GI complaints-he was not aware he had hemorrhoids he has never had an issue Discussed procedure report, pathology and recommendation Opportunity for questions answered to his satisfaction No nausea, vomiting, hematemesis, hematochezia fever or chills mpression and Post Procedure Diagnosis: polyp internal hemorrhoids Plan: High fiber diet leaflet Avoid straining at stool, epsom salts and sitz bath, anusol supps or cream Repeat Colonoscopy in 6-12 months due to fair to poor prep or earlier if clinically indicated--check compliance with prep, might need 2 d prep next time [facility] Medical History (Updated 11/04/23 @ 09:58 by Lizbeth Barahona PA-C) Diabetes Surgical History Hx of colonoscopy No pertinent past surgical history Family History Father No problems noted. Mother Diabetes mellitus Brother No problems noted. Brother No problems noted. Sister No problems noted. Sister No problems noted. Daughter No problems noted. Daughter No problems noted. 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 Current occupational exposures/hazards: No Cognitive needs: No Hearing needs: No Vision needs: No Review of Systems Const Details: All systems reviewed and are negative Physical Exam Vital Signs: Last Vital Signs Pulse 83 11/04/23 07:39 BP 119/65 11/04/23 07:39 BMI result Body Mass Index 34.8 Const General: cooperative, healthy appearing, comfortable, no acute distress and well developed Orientation/consciousness: patient oriented x3 Limitations: no limitations Eyes Sclerae: sclerae normal Resp Effort & Inspection: normal respiratory effort and able to speak in complete sentences Skin General skin exam: no rashes or lesions noted Neuro General: patient oriented x3 Extrem General: Yes full ROM Psych Appearance: grossly normal and well kempt Mental Status: mental status grossly normal Speech and movement: Normal speech and movement present and Clear speech present Affect: normal affect Attitude: cooperative Thought process: Normal thought process present Thought content: Normal thought content present Insight: Good insight present (Psych) Judgement: Good judgement present (Psych) Results Reviewed Results Reviewed: mpression and Post Procedure Diagnosis: polyp internal hemorrhoids Plan: High fiber diet leaflet Avoid straining at stool, epsom salts and sitz bath, anusol supps or cream Repeat Colonoscopy in 6-12 months due to fair to poor prep or earlier if clinically indicated--check compliance with prep, might need 2 d prep next time Name: Neto Nazario Age/Sex: 53/M Attending: Sheridan Cagle MD : 1970 Submitted by: Sheridan Cagle MD Copies to: Kerwin Stockton MD MR #: [id number] Status: [facility] Collected: 10/21/23 Location: [facility] Received: 10/21/23 Diagnosis Colon, rectal polyp: Tubular adenoma, completely excised; negative for high- grade dysplasia and carcinoma. Clinical History Pre-Op Dx: Screening Post-Op Dx: Colon polyp, diverticulosis Microscopic Description Microscopic sections reviewed. Material Received Rectal polyp Gross Description Received in formalin labeled ?rectal polyp? is a 0.6 cm dixon-pink papular tissue fragment which is bisected and entirely submitted in a cassette labeled A. CEDS Copies To Kerwin Stockton MD [address] [id number] Sheridan Cagle MD [address] [place] [address] [place] [id number] NOTE: Unless otherwise stated, all tissue is formalin-fixed and paraffin- embedded. Some or all of the immunohistochemical tests reported herein may have been developed and their performance characteristics determined by [facility]. They have not been cleared or approved by the U.S. Food and Drug Administration (FDA). However, the FDA has determined that such clearance or approval is not necessary. This laboratory is certified under the Clinical Laboratory Improvement Amendments of 1988 (CLIA) as qualified to perform high complexity clinical laboratory testing. Electronically Signed By: Buffy Enriquez 10/22/23 [id number] Patient: Neto Nazario Age/Sex: 53/M MR#: [id number] Page 1 of 1 Assessment & Plan Assessment & Plan (1) Tubular adenoma of colon: Comment: Reviewed procedure report, pathology recommendation in presence of inadequate prep repeat colonoscopy 6-12 months Code(s): D12.6 - Benign neoplasm of colon, unspecified Plan: Repeat colonoscopy 6 months (2) Hemorrhoids: Code(s): K64.9 - Unspecified hemorrhoids Plan: Maintain high-fiber diet avoid straining Plan Repeat colonoscopy 05/2024- Extened prep-he will take MiraLax daily for 5 days prior to prep day Stop Ozempic 1 week before Omit metformin and glipizide prep day as well no DM meds morning of procedure Orders: Orders Colonoscopy - GI Use Only Today Z12.11 - Encounter for screening for malignant neoplasm of colon Medications: New bisacodyl (Dulcolax (bisacodyl)) Must stop Ozempic 1 week prior- to procedure Day before procedure @ 12 noon Take 4 tablets by mouth followed by large glass of water 20 mg (4 x 5 mg) PO ONCE 1 day PRN 4 tabs 0RF colonoscopy prep Z12.11 - Encounter for screening for malignant neoplasm of colon polyethylene glycol 3350 (Miralax) take QD x 5 days prior to prep day As well as need constipation 17 grams PO DAILY PRN 510 grams 6RF laxative effect polyethylene glycol 3350 (Miralax) Take as directed by mouth the day before your procedure. 238 grams PO ONCE 1 day PRN 238 grams 0RF laxative effect Patient Instructions: Very pleasant Gent follows up after recent index screening colonoscopy with polypectomy Reviewed procedure report, pathology as well as recommendations Due to inadequate prep highly recommend Repeat colonoscopy 05/2024- Extened prep-he will take MiraLax daily for 5 days prior to prep day Stop Ozempic 1 week before Omit metformin and glipizide prep day as well no DM meds morning of procedure Encouraged to call with any questions or concerns Coding Level of Care Code Est Pt Level 3 (82513) Diagnoses Tubular adenoma of colon D12.6 Hemorrhoids K64.9 Time Spent (min) 30
[2023-11-04 07:39] VITALS: BP 119/65; PULSE 83; BMI 34.8
== END 2023-11-04 08:01 | disposition home or self-care (01) ==
PROVIDERS: PCP Family Medicine; Visit Provider Physician Assistant
DX: D12.6 Benign neoplasm of colon, unspecified (principal); K64.9 Unspecified hemorrhoids
CPT/HCPCS: 99213

== ENCOUNTER → 2023-11-04 07:09 | Outpatient (BNVA) | payer OTHER, SELFPAY | PROVIDERS: PCP Family Medicine; Visit Provider Physician Assistant ==

== ENCOUNTER 2024-01-18 08:02 | Outpatient (AMB) | payer OTHER, SELFPAY ==
--- NOTE | 2024-01-18 08:10 | MHC.PC.OV ---
Vital Signs 01/18/24 08:13 Height 5 ft 7 in Weight 227 lb 2 oz BMI 35.6 BP 120/72 Blood Pressure Location Lt brachial Position Sitting Pulse 68 Pulse Source Pulse Oximeter Pulse Oximetry (%) 95 Oxygen Delivery Method Room Air Intake Visit Reasons: f/u diabetes Intake Note: Patient is here to follow up on diabetes. Allergies No Known Allergies Allergy (Verified 01/18/24 08:15) Medication List - Last Reconciled 01/18/24 by Kerwin Stockton MD atorvastatin 40 mg PO DAILY 90 days bisacodyl (Dulcolax (bisacodyl)) 20 mg (4 x 5 mg) PO ONCE PRN 1 day blood-glucose sensor (MoblicoStyle Theo 3 Sensor device) As directed gemfibrozil 600 mg PO BID glipizide 10 mg (2 x 5 mg) PO BID 90 days metformin 1000 mg a.m. and 750 mg p.m. orally 2 times a day; 90 days polyethylene glycol 3350 (Miralax) 17 grams PO DAILY PRN polyethylene glycol 3350 (Miralax) 238 grams PO ONCE PRN 1 day semaglutide (Ozempic) 1 mg (0.75 mL) subcut QWEEK 28 days Tobacco use date assessed: 01/18/24 Dental Screening Dental Screen Date: 10/19/23 HPI f/u diabetes HPI Details 53 y/o male presents to f/u diabetes. A1c had climbed to 7.3% and he noted he had not been able to get Trulicity. Had changed Trulicity to Ozempic. A1c today 01/18/24 is 6.2%. He has been able to get the Ozempic. He notes he has been exercising 5-6x a week as well. [facility] Medical History Diabetes Surgical History Hx of colonoscopy No pertinent past surgical history Family History Father No problems noted. Mother Diabetes mellitus Brother No problems noted. Brother No problems noted. Sister No problems noted. Sister No problems noted. Daughter No problems noted. Daughter No problems noted. 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 Liam Momin, Ericka Montesinos, Moses Anand and colleagues, with an educational tai from [employer]. Review of Systems Const Denies chills, Denies fatigue, Denies fever(s), Denies headache(s) and Denies weakness ENT Denies dizziness and Denies headache(s) Card Denies chest pain, Denies lightheadedness, Denies dyspnea and Denies other (Palpitations) Resp Denies cough, Denies dyspnea, Denies wheezing and Denies other ( shortness of breath) Musc Denies numbness and Denies tingling Neuro Denies dizziness, Denies headache(s), Denies numbness, Denies tingling, Denies paresthesias and Denies weakness Psych Denies anxiety and Denies depression Endo Denies fatigue Aller/Immun Denies wheezing Physical exam (Primary Care) Vital Signs: Last Vital Signs Pulse 68 01/18/24 08:13 BP 120/72 01/18/24 08:13 Pulse Ox 95 01/18/24 08:13 Oxygen Delivery Method Room Air 01/18/24 08:13 BMI result Body Mass Index 35.6 Tobacco/Smoking Status: Tobacco use Status Tobacco use date assessed 01/18/24 01/18/24 08:15 Patient Tobacco Use Status Former Tobacco user 01/18/24 08:11 Tobacco use type Cigarette 01/18/24 08:11 e-Cigarette/Vaping Use Never Used 01/18/24 08:11 Thrive Assessment: Date of Thrive Assessment Date Thrive assessed 10/19/23 01/18/24 08:11 Const General: no acute distress and well developed Nutritional Appearance: well nourished Orientation/consciousness: patient oriented x3 HENMT Head: Yes normocephalic and Yes atraumatic Eyes General: appearance normal, both eyes and all related structures Pupils: Equal, round and reactive pupils present EOM: EOMs intact bilaterally Resp Effort & Inspection: normal respiratory effort Auscultation: clear to auscultation bilaterally Cardio Rate: regular rate Rhythm: regular rhythm Heart sounds: S1 normal heart sound present, S2 normal heart sound present, no gallops, no murmurs and no rubs Neuro General: patient oriented x3 and gait normal Cranial nerves: Yes Equal, round and reactive pupils present Psych Affect: normal affect Results AMB Hemoglobin A1c AMB Hemoglobin A1c 6.2 % Last Edit by Dania Lopez CMA on 01/18/24 08:36 Assessment and Plan Assessment & Plan (1) Diabetes type 2, controlled: Code(s): E11.9 - Type 2 diabetes mellitus without complications Plan: A1C today 6.2% Good control. Goal?is?less?than?7.0% Continue?current?medication?regimen Continue?diabetic?diet Continue?exercise Last?diabetic?eye?exam?was?March?2022 Orders: Orders Prostate Specific Antigen Scr Today Z12.5 - Encounter for screening for malignant neoplasm of prostate TSH reflex Free T4 Today Z00.00 - Encounter for general adult medical examination without abnormal findings AMB Hemoglobin A1c Today Z13.9 - Encounter for screening, unspecified Comprehensive [place]. Panel Fast Today Z00.00 - Encounter for general adult medical examination without abnormal findings Microalbumin, Random (w Creat) Today I10 - Essential (primary) hypertension Lipid Panel Today Z00.00 - Encounter for general adult medical examination without abnormal findings UA and rflx microscopic Today Z00.00 - Encounter for general adult medical examination without abnormal findings Medications: Refilled glipizide 10 mg (2 x 5 mg) PO BID 90 days 360 tabs 3RF Coding Level of Care Code Est Pt Level 3 (96923) Diagnoses Diabetes type 2, controlled E11.9
[2024-01-18 08:13] VITALS: BP 120/72; PULSE 68; O2SAT 95; BMI 35.6
== END 2024-01-18 08:41 | disposition home or self-care (01) ==
PROVIDERS: PCP Family Medicine; Visit Provider Family Medicine
DX: E11.9 Type 2 diabetes mellitus without complications (principal)
CPT/HCPCS: 83036; 99213

== ENCOUNTER 2024-03-14 09:55 | Outpatient (REF) | payer OTHER, SELFPAY ==
[2024-03-14 11:25] LABS: Appearance Urine Clear; Color Urine Yellow; Glucose Urine UA Negative (Negative); Leukocyte Esterase Urine Negative (Negative); Nitrite Urine Negative (Negative); PH 5.5 (5.0-9.0); Specific Gravity - Urine 1.025 (1.005-1.025); Urine Blood Negative (Negative); Urine Ketones Negative (Negative); Urine Protein Negative (Neg-Trace)
[2024-03-14 11:48] LABS: Alanine Aminotransferase 20 U/L (0-40); Albumin Level 4.5 g/dL (3.5-5.0); Alkaline Phosphatase 65 U/L (39-117); Anion Gap 12 (12-20); Aspartate Amino Transferase 21 U/L (5-37); Bilirubin Total 0.5 mg/dL (0.0-1.0); Blood Urea Nitrogen 18 mg/dL (9-16); Calcium 9.6 mg/dL (8.4-10.2); Carbon Dioxide 24 mmol/L (22-29); Chloride 108 mmol/L (96-108); Cholesterol 112 mg/dL (<200); Estimated Glomerular Filt Rate > 60; Glucose Fasting 100 mg/dL (60-99); HDL Cholesterol 34 mg/dL (>40); LDL Cholesterol Calculated 66 mg/dL (<100); Potassium 4.3 mmol/L (3.3-5.1); Sodium 140 mmol/L (135-145); Total Protein 7.6 g/dL (6.5-8.0); Triglycerides 64 mg/dL (<150)
[2024-03-14 12:02] LABS: Creatinine Urine 170.94 mg/dL; Microalbum/Creatinine Ratio Ur 6.4 ug/mg cr (<30)
[2024-03-14 12:15] LABS: TSH reflex Free T4 0.99 uIU/mL (0.32-4.0)
[2024-03-14 12:21] LABS: Prostate Specific Antigen Scr 0.77 ng/mL (<0.05-4.0)
== END 2024-03-14 09:56 | disposition home or self-care (01) ==
LOC: HO.WFDLDS 09:55
PROVIDERS: Visit Provider Family Medicine
DX: Z00.00 Encounter for general adult medical examination without abnormal findings (principal); Z12.5 Encounter for screening for malignant neoplasm of prostate; I10 Essential (primary) hypertension
CPT/HCPCS: 36415; 80053; 80061; 81003; 82043; 82570; 84153; 84443

== ENCOUNTER 2024-03-28 15:23 | Outpatient (AMB) | payer OTHER, SELFPAY ==
[2024-03-28 15:27] VITALS: BP 130/84; PULSE 88; O2SAT 97; BMI 35.5
--- NOTE | 2024-03-28 15:27 | MHC.PC.OV ---
Vital Signs 03/28/24 15:27 Height 5 ft 7 in Weight 227 lb BMI 35.5 BP 130/84 Blood Pressure Location Lt brachial Position Sitting Pulse 88 Pulse Source Pulse Oximeter Pulse Oximetry (%) 97 Oxygen Delivery Method Room Air Intake Visit Reasons: Annual PE Allergies No Known Allergies Allergy (Verified 03/28/24 15:30) Tobacco use date assessed: 01/18/24 Dental Screening Dental Screen Date: 03/28/24 Did you have a dental visit in the last 12 months?: No Did you have a dental problem in the last 6 months where you did not have access to dental care?: No Was dental information given to patient?: Patient has dentist HPI Annual PE HPI Details 54 y/o male presents for a CPE with f/u labs and health maintenance. Labs were drawn 03/14/24. Reviewed labs with pt. Fasting glucose of 100. Triglycerides 64. TC 112. LDL 66. HDL low at 34. He is on artovastatin 40mg, gemfibrozil 600mg b.i.d. [facility] Medical History Diabetes Surgical History Hx of colonoscopy No pertinent past surgical history Family History Father No problems noted. Mother Diabetes mellitus Brother No problems noted. Brother No problems noted. Sister No problems noted. Sister No problems noted. Daughter No problems noted. Daughter No problems noted. 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 1. Little interest or pleasure in doing things: not at all 2. Feeling down, depressed, or hopeless: not at all 3. Trouble falling or staying asleep, or sleeping too much: not at all 4. Feeling tired or having little energy: not at all 5. Poor appetite or overeating: not at all 6. Feeling bad about yourself - or that you are a failure or have let yourself or your family down: not at all 7. Trouble concentrating on things, such as reading the newspaper or watching television: not at all 8. Moving or speaking so slowly that other people could have noticed. Or the opposite - being so fidgety or restless that you have been moving around a lot more than usual: not at all 9. Thoughts that you would be better off or of hurting yourself in some way: not at all Total score: 0 Depression Screening Interpretation: Negative Depression Screening Done: Yes 34228 - PHQ-9 Billing: Yes Source: Developed by Drs. Liam Momin, Ericka Montesinos, Moses Anand and colleagues, with an educational tai from [employer]. Thrive Questionnaire Date Thrive assessed: 10/19/23 I am a: Patient What is your living situation today?: I have a steady place to live Within the past 12 months, did the food you bought not last and you didn't have the money to get more?: Never true Within the past 12 months, did you worry whether your food would run out before you got money to buy more?: Never true Do you have trouble paying for medicines?: No Do you have trouble getting transportation to medical appointments?: No Do you have trouble paying your heating and electricity bill?: No Do you have trouble taking care of your child, family member or friend?: No Do you have trouble with day-to-day activities such as bathing, preparing meals, shopping, managing finances, etc.?: No Are you currently unemployed and looking for a job?: No Are you interested in more education?: No THRIVE Score: 0 AUDIT C Alcohol Use Questionnaire (AUDIT-C) 1. How often do you have a drink containing alcohol?: 2-3 times a week 2. How many drinks containing alcohol do you have on a typical day when you are drinking?: 1 or 2 3. How often do you have six or more drinks on one occasion?: Never Total Score: 3 MELINA-7 AMB Questionnaire MELINA-7 Date MELINA - 7 assessed: 10/19/23 Feeling nervous, anxious, or on edge: 0 = Not at all Not being able to stop or control worryin = Not at all Worrying too much about different things: 0 = Not at all Trouble relaxin = Not at all Being so restless that it is hard to sit still: 0 = Not at all Becoming easily annoyed or irritable: 0 = Not at all Feeling afraid as if something awful might happen: 0 = Not at all Total MELINA-7 score (0-4 normal; 5-9 mild; 10-14 moderate; 15-21 severe): 0 Source: Developed by Drs. Liam Momin, Ericka Montesinos, Moses Anand and colleagues, with an educational tai from [employer]. MELINA-7 Assessment Billing MELINA-7 Assessment Tool: MELINA-7 Assessment 76590 Review of Systems Const Denies chills, Denies fatigue, Denies fever(s), Denies headache(s) and Denies weakness Eyes Denies change in vision ENT Denies dizziness, Denies headache(s), Denies hearing loss, Denies nasal congestion, Denies sinus pain, Denies sinus pressure and Denies sore throat Card Denies chest pain, Denies lightheadedness, Denies dyspnea and Denies other (palpitations) Resp Denies cough, Denies dyspnea and Denies wheezing GI Denies abdominal pain, Denies melena, Denies hematochezia, Denies change in bowel habits, Denies dyspepsia and Denies nausea Denies hematuria and Denies dysuria Musc Denies abnormal gait, Denies myalgias, Denies arthralgias, Denies numbness and Denies tingling Skin/Breast Denies rash, Denies unusual bruising and Denies wounds Neuro Denies abnormal gait, Denies dizziness, Denies headache(s), Denies memory loss, Denies numbness, Denies Sensory deficit (Neuro), Denies tingling and Denies weakness Psych Denies anxiety, Denies depression and Denies memory loss Endo Denies cold intolerance, Denies fatigue, Denies heat intolerance, Denies polydipsia and Denies polyuria Jesus/Lymph Denies easy bleeding and Denies easy bruising Aller/Immun Denies wheezing Physical exam (Primary Care) Vital Signs: Last Vital Signs Pulse 88 03/28/24 15:27 BP 130/84 03/28/24 15:27 Pulse Ox 97 03/28/24 15:27 Oxygen Delivery Method Room Air 03/28/24 15:27 BMI result Body Mass Index 35.5 Tobacco/Smoking Status: Tobacco use Status Tobacco use date assessed 01/18/24 03/28/24 15:32 Patient Tobacco Use Status Former Tobacco user 03/28/24 15:32 Tobacco use type Cigarette 03/28/24 15:32 e-Cigarette/Vaping Use Never Used 03/28/24 15:32 PHQ-9: PHQ-9 Score PHQ-9: Total score 0 03/28/24 15:32 Depression Screening Interpretation: Negative Thrive Assessment: Date of Thrive Assessment Date Thrive assessed 10/19/23 03/28/24 15:32 Const General: no acute distress, well developed, alert and awake Nutritional Appearance: well nourished Orientation/consciousness: patient oriented x3 HENMT Head: Yes normocephalic and Yes atraumatic Ears: hearing grossly normal bilaterally and TM's normal bilaterally General nose exam: Normal external nose present and Normal nares present Mouth: Normal oral and palatal mucosa present and moist mucous membranes Teeth and gingiva: dentition normal Throat: Yes posterior oropharynx normal Eyes General: appearance normal, both eyes and all related structures Pupils: Equal, round and reactive pupils present and Pupil accommodation reflex normal EOM: EOMs intact bilaterally Neck Neck: Yes normal visual inspection, Yes no lymphadenopathy and Yes trachea midline Thyroid: Thyroid normal Carotids: no bruits Lymphatic: no lymphadenopathy noted Chest Chest palpation & inspection: normal inspection of the chest Resp Effort & Inspection: normal respiratory effort Auscultation: clear to auscultation bilaterally Cardio Rate: regular rate Rhythm: regular rhythm Heart sounds: S1 normal heart sound present, S2 normal heart sound present, no gallops, no murmurs and no rubs Bruits: no abdominal aortic bruits and no carotid bruits GI Palpation (GI): No Abdominal aortic bruit present, Soft to palpation, nontender, No hepatosplenomegaly present and No Rebound tenderness present Auscultation: normal bowel sounds General: Yes no CVA tenderness Back/Spine/Pelvis Back: no CVA tenderness Cervical Spine: cervical ROM normal and No Cervical spine tenderness Thoracic/Lumbar Spine: thoraco-lumbar ROM normal, No pain with thoraco-lumbar ROM, No thoracic spinal tenderness and No lumbar spinal tenderness Skin Lesions: no lesions Rashes: no rashes Trauma: no lacerations or abrasions Wounds: no wounds Nails: normal Neuro General: patient oriented x3 Cranial nerves: Yes Equal, round and reactive pupils present Cognition (Neuro): normal cognition Gait exam (Neuro): Normal gait present Motor exam (neuro): 5/5 motor strength present throughout Sensory Exam: No Sensory deficit (Neuro) Deep tendon reflexes (DTR's): Right patellar reflex intensity grade: 2+ and Left patellar reflex intensity grade: 2+ Extrem General: Yes normal to inspection and No edema Psych Appearance: grossly normal Affect: normal affect Attitude: cooperative Thought process: Normal thought process present Assessment and Plan Assessment & Plan (1) Adult general medical exam: Code(s): Z00.00 - Encounter for general adult medical examination without abnormal findings Plan: 54-year-old?male?presents?for?complete?physical?exam Encouraged?healthy?diet?and?exercise (2) Diabetes type 2, controlled: Code(s): E11.9 - Type 2 diabetes mellitus without complications Plan: A1c?showed?good?control?at?last?check; 6.2%?in?May Continue?current?regimen?and?we?will?follow-up?at?next?visit (3) Hyperlipidemia: Code(s): E78.5 - Hyperlipidemia, unspecified Plan: Patient?is?on?atorvastatin?and?fenofibrate. His?TC,?LDL?and?triglycerides?are?well?controlled. HDL?is?low He?exercises?frequently He?can?try?increasing?Sunset?threes?in?his?diet Will?follow-up?with?next?visit (4) Screening for colon cancer: Code(s): Z12.11 - Encounter for screening for malignant neoplasm of colon Plan: Colonoscopy?showed?polyps?and?he?has?an?upcoming?appointment?with?[facility]?for?follow-up?colonoscopy (5) Screening for prostate cancer: Code(s): Z12.5 - Encounter for screening for malignant neoplasm of prostate Plan: PSA?was?within?normal?range We?will?continue?annual?screening (6) Nasal polyp: Code(s): J33.9 - Nasal polyp, unspecified Plan: Inflamed?terminate?or?nasal?polyp Trial?nasal?steroid (7) Low HDL (under 40): Code(s): E78.6 - Lipoprotein deficiency Plan: As?above (8) Balanitis: Code(s): N48.1 - Balanitis Plan: Will?give?him?a?script?for?clotrimazole?as?this?is?likely?a?yeast?infection If?not?improving,?will?refer?to?Urology Medications: New fluticasone propionate 50 mcg/actuation (Flonase Allergy Relief) administer into each nostril 1 spray intranasal Q12H 30 days 16 grams 2RF clotrimazole 1% 1 appl topical BID 2 weeks 30 grams 1RF Coding Level of Care Code Est Pt Level 3 (73756) Est Pt Prev Care 40-64y(72247) Diagnoses Adult general medical exam Z00.00 Diabetes type 2, controlled E11.9 Hyperlipidemia E78.5 Screening for colon cancer Z12.11 Screening for prostate cancer Z12.5 Nasal polyp J33.9 Low HDL (under 40) E78.6 Balanitis N48.1 Additional Codes MELINA-7 Assessment Billing - MELINA-7 Assessment Tool: MELINA-7 Assessment [id number] ([id number])
== END 2024-03-28 16:10 | disposition home or self-care (01) ==
PROVIDERS: PCP Family Medicine; Visit Provider Family Medicine
DX: Z00.00 Encounter for general adult medical examination without abnormal findings (principal); E11.9 Type 2 diabetes mellitus without complications; E78.5 Hyperlipidemia, unspecified; J33.9 Nasal polyp, unspecified; Z12.11 Encounter for screening for malignant neoplasm of colon; Z12.5 Encounter for screening for malignant neoplasm of prostate; E78.6 Lipoprotein deficiency; N48.1 Balanitis
CPT/HCPCS: 99396

== ENCOUNTER 2024-05-30 16:05 | Outpatient (AMB) | payer OTHER, SELFPAY ==
--- NOTE | 2024-05-30 16:31 | MHC.PC.OV ---
Vital Signs 05/30/24 16:34 Height 5 ft 7 in Weight 221 lb 4 oz BMI 34.6 BP 110/70 Blood Pressure Location Lt brachial Position Sitting Respiration 16 Pulse 88 Pulse Source Pulse Oximeter Pulse Oximetry (%) 95 Oxygen Delivery Method Room Air Intake Visit Reasons: f/u diabetes, HLD Intake Note: f/u for DM and hld levels Allergies No Known Allergies Allergy (Verified 05/30/24 16:31) Medication List - Last Reconciled 05/30/24 by Kerwin Stockton MD atorvastatin 40 mg PO DAILY 90 days bisacodyl (Dulcolax (bisacodyl)) 20 mg (4 x 5 mg) PO ONCE PRN 1 day blood-glucose sensor (FreeStyle Theo 3 Sensor device) As directed fluticasone propionate 50 mcg/actuation (Flonase Allergy Relief) 1 spray intranasal Q12H 30 days gemfibrozil 600 mg PO BID glipizide 10 mg (2 x 5 mg) PO BID 90 days metformin 1000 mg a.m. and 750 mg p.m. orally 2 times a day; 90 days polyethylene glycol 3350 (Miralax) 17 grams PO DAILY PRN polyethylene glycol 3350 (Miralax) 238 grams PO ONCE PRN 1 day semaglutide (Ozempic) 1 mg (0.75 mL) subcut QWEEK 28 days Tobacco use date assessed: 01/18/24 Dental Screening Dental Screen Date: 03/28/24 HPI f/u diabetes, HLD HPI Details 54 y/o male presents to f/u diabetes, HLD. A1c today 05/30/24 5.9%, which improved from 6.2%. No recent lipid panel to review. Continues to go to the gym 5-6 days a week. He reports ongoing complaints of balanitis. Urology has not contacted him yet. [facility] Medical History (Updated 03/28/24 @ 16:08 by Jaden Carrizales) Diabetes Surgical History Hx of colonoscopy No pertinent past surgical history Family History Father No problems noted. Mother Diabetes mellitus Brother No problems noted. Brother No problems noted. Sister No problems noted. Sister No problems noted. Daughter No problems noted. Daughter No problems noted. 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 How many drinks containing alcohol do you have on a typical day when you are drinking?: 1 or 2 3. How often do you have six or more drinks on one occasion?: Never Total Score: 0 MELINA-7 AMB Questionnaire MELINA-7 Date MELINA - 7 assessed: 10/19/23 Source: Developed by Drs. Liam Momin, Ericka Montesinos, Moses Anand and colleagues, with an educational tai from [employer]. Review of Systems Const Denies chills, Denies fatigue, Denies fever(s), Denies headache(s) and Denies weakness ENT Denies dizziness and Denies headache(s) Card Denies dyspnea Resp Denies cough, Denies dyspnea, Denies wheezing and Denies other (shortness of breath) Musc Denies numbness and Denies tingling Neuro Denies dizziness, Denies headache(s), Denies numbness, Denies tingling and Denies weakness Psych Denies anxiety and Denies depression Endo Denies fatigue Aller/Immun Denies wheezing Physical exam (Primary Care) Vital Signs: Last Vital Signs Pulse 88 05/30/24 16:34 Resp 16 05/30/24 16:34 BP 110/70 05/30/24 16:34 Pulse Ox 95 05/30/24 16:34 Oxygen Delivery Method Room Air 05/30/24 16:34 BMI result Body Mass Index 34.6 Tobacco/Smoking Status: Tobacco use Status Tobacco use date assessed 01/18/24 05/30/24 16:39 Patient Tobacco Use Status Former Tobacco user 05/30/24 16:39 Tobacco use type Cigarette 05/30/24 16:39 e-Cigarette/Vaping Use Never Used 05/30/24 16:39 Thrive Assessment: Date of Thrive Assessment Date Thrive assessed 10/19/23 05/30/24 16:39 Const General: well developed; No acute distress Nutritional Appearance: well nourished Orientation/consciousness: patient oriented x3 [facility] Head: Yes normocephalic and Yes atraumatic Eyes General: appearance normal, both eyes and all related structures Pupils: Equal, round and reactive pupils present EOM: EOMs intact bilaterally Resp Effort & Inspection: normal respiratory effort Neuro General: patient oriented x3 and gait normal Cranial nerves: Yes Equal, round and reactive pupils present Psych Affect: normal affect Results AMB Hemoglobin A1c AMB Hemoglobin A1c 5.9 % Last Edit by PHILLIP Amezcua on 05/30/24 16:47 Results Reviewed Results Reviewed: Laboratory Last Values Hgb A1c (Clinic) 5.9 % (4.0-6.0) 05/30/24 16:43 Assessment and Plan Assessment & Plan (1) Diabetes type 2, controlled: Code(s): E11.9 - Type 2 diabetes mellitus without complications Plan: A1c?improved?and?now?5.9%.??Goal?is?less?than?7.0% Ongoing?good?control. Continue?current?medication?regimen Continue?diabetic?diet?and?exercise (2) Hyperlipidemia: Code(s): E78.5 - Hyperlipidemia, unspecified Plan: Triglycerides,?TC?and?LDL?are?well?controlled?on?gemfibrozil?and?atorvastatin?without?adverse?effects. Continue?current?medications Still?has?low?HDL.??Continue?exercise. (3) Balanitis: Code(s): N48.1 - Balanitis Plan: Still?has?ongoing?balanitis.??He?says?clotrimazole?started?helping?a?little?but?he?has?run?out?of?it. No?pain?but?some?itch/irritation Will?give?him?a?script?for?clotrimazole-betamethasone?cream. Continue?to?avoid?excess?moisture Referred?to?urology. He?will?let?me?know?if?there?is?any?change/increase?in?pain - would?consider?antibiotic?treatment. Orders: Orders AMB Hemoglobin A1c Today E11.65 - Type 2 diabetes mellitus with hyperglycemia Lipid Panel Today E78.6 - Lipoprotein deficiency, Z00.00 - Encounter for general adult medical examination without abnormal findings Comprehensive [place]. Panel Fast Today E78.6 - Lipoprotein deficiency, Z00.00 - Encounter for general adult medical examination without abnormal findings Referrals Urology Referral N48.1 - Balanitis Medications: New clotrimazole-betamethasone 1-0.05 % 1 appl topical BID 14 days 15 grams 1RF Refilled semaglutide (Ozempic) 1 mg (0.75 mL) subcut QWEEK 28 days 3 mL 3RF E78.6 - Lipoprotein deficiency Coding Level of Care Code Est Pt Level 4 (04160) Diagnoses Diabetes type 2, controlled E11.9 Hyperlipidemia E78.5 Balanitis N48.1
[2024-05-30 16:34] VITALS: BP 110/70; PULSE 88; RESP 16; O2SAT 95; BMI 34.6
== END 2024-05-30 17:01 | disposition home or self-care (01) ==
PROVIDERS: PCP Family Medicine; Visit Provider Family Medicine
DX: E11.9 Type 2 diabetes mellitus without complications (principal); E78.5 Hyperlipidemia, unspecified; N48.1 Balanitis; E11.65 Type 2 diabetes mellitus with hyperglycemia

== ENCOUNTER → 2024-05-30 16:05 | Outpatient (BNVA) | payer OTHER, SELFPAY | PROVIDERS: PCP Family Medicine; Visit Provider Family Medicine | DX: E11.9 Type 2 diabetes mellitus without complications (principal); E78.5 Hyperlipidemia, unspecified; N48.1 Balanitis; Z79.899 Other long term (current) drug therapy | CPT/HCPCS: 83036 ==

== ENCOUNTER 2024-07-27 07:42 | Outpatient (AMB) | payer OTHER, SELFPAY ==
--- NOTE | 2024-07-27 08:04 | A.OFFVIS_ITS ---
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 and 750 mg p.m. orally 2 times a day; 90 days polyethylene glycol 3350 (Miralax) 17 grams PO DAILY PRN polyethylene glycol 3350 (Miralax) 238 grams PO ONCE PRN 1 day semaglutide (Ozempic) 1 mg (0.75 mL) subcut QWEEK 28 days HPI Comments Details: Neto is a very pleasant 54-year-old male patient of Dr. Stockton. He has a past medical history of diabetes and hyperlipidemia. He presents to the office today as a new patient for balanitis. In discussion with the patient today he reports having followed up with his PCP for ongoing issues he has been having with the foreskin of his penis. He reports symptoms started approximately 6 months ago. He reports having been prescribed multiple different creams that have been somewhat helpful however he does continue to experience issues with retracting the foreskin of his penis. In assessment of the patient today the penis is uncircumcised and foreskin is limited upon retraction. We discussed phimosis as well as balanitis. In review of patient's chart it appears most recent A1c 05/24 5.9. He otherwise denies any bothersome urinary issues. He denies urinary urgency, urinary frequency, incontinence, nocturia, hematuria, dysuria, foul smelling urine, changes to urinary stream, flank pain, fever, and or chills. He is happy with his current voiding parameters. He discusses feeling symptoms started 6 months ago after a change in his diabetic meds. We discussed further treatment options of recurrent balanitis as well as phimosis and risks and benefits of these interventions. In office urinalysis results reviewed with the patient today. He otherwise offers no other issues or concerns at this time. [facility] Medical History Diabetes Surgical History Hx of colonoscopy No pertinent past surgical history Family History Father No problems noted. Mother Diabetes mellitus Brother No problems noted. Brother No problems noted. Sister No problems noted. Sister No problems noted. Daughter No problems noted. Daughter No problems noted. 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 Current occupational exposures/hazards: No Cognitive needs: No Hearing needs: No Vision needs: No Review of Systems Const All systems reviewed & are unremarkable except as noted in HPI and below Physical Exam Const General: cooperative, comfortable, no acute distress, well developed, alert and awake Orientation/consciousness: patient oriented x3 HEENT Head: Yes normal to inspection, Yes normocephalic and Yes atraumatic Ears: hearing grossly normal bilaterally Eyes General: appearance normal, both eyes and all related structures Neck Neck: Yes normal visual inspection and Yes trachea midline Chest Chest palpation & inspection: normal inspection of the chest Resp Effort & Inspection: normal respiratory effort and able to speak in complete sentences Cardio Rate: regular rate GI Inspection: Yes normal to inspection General: Yes no CVA tenderness Male General Exam: Yes normal external exam Penis: uncircumcised and phimosis Back/Spine/Pelvis Back: no CVA tenderness Skin General skin exam: no rashes or lesions noted Neuro General: patient oriented x3 Extrem General: Yes normal to inspection Psych Appearance: grossly normal and well kempt Mental Status: mental status grossly normal Speech and movement: Normal speech and movement present and Clear speech present Affect: normal affect Attitude: cooperative Thought process: Normal thought process present Thought content: Normal thought content present Insight: Fair insight present (Psych) Judgement: Fair judgement present (Psych) Results AMB Urinalysis, Automated UA Leukoctes 0 Pa/uL Last Edit by Mobi-Moto on 07/27/24 08:17 UA Nitrite Last Edit by Flywheel on 07/27/24 08:17 UA Urobilinogen 0.2 mg/dL Last Edit by Flywheel on 07/27/24 08:17 UA Protein 0 mg/dL Last Edit by Flywheel on 07/27/24 08:17 UA pH 6.0 Last Edit by Flywheel on 07/27/24 08:17 UA Blood 0 Matt/uL Last Edit by Mobi-Moto on 07/27/24 08:17 UA Specific [place] 1.030 Last Edit by Flywheel on 07/27/24 08:17 UA Ketone Last Edit by Flywheel on 07/27/24 08:17 UA Bilirubin 0 mg/dL Last Edit by Mobi-Moto on 07/27/24 08:17 UA Glucose 0 mg/dL Last Edit by Flywheel on 07/27/24 08:17 Results Reviewed Results Reviewed: Laboratory Last Values Urine pH (Auto) 6.0 07/27/24 08:09 Specific [place] (Auto) 1.030 07/27/24 08:09 Urine Protein (Auto) 0 mg/dL 07/27/24 08:09 Glucose (UA)(Auto) 0 mg/dL 07/27/24 08:09 Urine Blood (Auto) 0 Matt/uL 07/27/24 08:09 Urine Bilirubin (Auto) 0 mg/dL 07/27/24 08:09 Urine Urobilinogen (Auto) 0.2 mg/dL 07/27/24 08:09 Leukocyte Esterase (Auto) 0 Pa/uL 07/27/24 08:09 Assessment & Plan Assessment & Plan (1) Balanitis: Code(s): N48.1 - Balanitis Category: Medical (2) Phimosis: Code(s): N47.1 - Phimosis Category: Medical Plan: Risks, benefits and alternatives to therapy were discussed. These include but are not limited to infection, bleeding, damage to local organs and tissues, need for further interventions. ? Anesthetic risks regarding cardiac arrhythmia, blood clots, and potential mortality were discussed. The patient understands the typical recovery time and the outpatient nature of the procedure. After consideration of these risks the patient gives full informed consent and they wish to move ahead with the procedure. Plan In office urinalysis results reviewed with the patient today; as noted above. We discussed further treatment options of balanitis as well as phimosis and risks and benefits of these interventions. He denies any bothersome urinary issues. He reports be happy with current voiding parameters. Discussed risks and benefits of a circumcision All questions were answered Will schedule for circumcision as discussed. Follow-up per doctor's orders; or sooner with any issues, concerns, and or questions. Orders: Orders AMB Urinalysis Automated Today Z13.9 - Encounter for screening, unspecified Medications: New clotrimazole-betamethasone 1-0.05 % Apply thin coat 2 times per day 1 appl topical BID 45 grams 0RF 4 weeks N48.1 - Balanitis Patient Instructions: The patient had an opportunity to ask questions regarding the treatment plan. All questions were answered. Physical exam, labs, and imaging were discussed and reviewed in detail. As well as risks, benefits, and discussion of treatment choices. No major barriers to understanding were identified. The patient expressed understanding and agreement with the above treatment plan. The patient was made aware they should contact our office by phone for worsening of their current condition, the appearance of new symptoms, or with any questions or concerns. Compliance is encouraged with any medications and follow up testing that is ordered. It is a privilege to be allowed the opportunity to participate in? your urological care.? Again, if you have any questions or concerns If you have any questions or concerns please do not hesitate to contact me. The office is [phone]. This note is constructed using voice recognition software. While every effort has been made to ensure accuracy manufacturing quality technician errors may have been included. Yours sincerely, JUAN F Thomas-ANTONIA Coding Level of Care Code New Pt Level 4 (98901) Diagnoses Balanitis N48.1 Phimosis N47.1
== END 2024-07-27 08:55 | disposition home or self-care (01) ==
PROVIDERS: PCP Family Medicine; Visit Provider Nurse Practitioner Family
DX: N48.1 Balanitis (principal); N47.1 Phimosis; Z13.9 Encounter for screening, unspecified
CPT/HCPCS: 99204

== ENCOUNTER → 2024-07-27 07:42 | Outpatient (BNVA) | payer OTHER, SELFPAY | PROVIDERS: PCP Family Medicine; Visit Provider Nurse Practitioner Family | DX: N48.1 Balanitis (principal); N47.1 Phimosis | CPT/HCPCS: 81003 ==

== ENCOUNTER 2024-09-01 08:16 | Outpatient (AMB) | payer OTHER, SELFPAY ==
--- NOTE | 2024-09-01 08:37 | MHC.PC.OV ---
Vital Signs 09/01/24 08:39 Height 5 ft 7 in Weight 224 lb 8 oz BMI 35.2 BP 120/68 Blood Pressure Location Lt brachial Position Sitting Respiration 16 Pulse 74 Pulse Source Pulse Oximeter Temp 98.9 F Temp Source Oral Pulse Oximetry (%) 95 Oxygen Delivery Method Room Air Intake Visit Reasons: f/u diabetes, chronic conditions Intake Note: dm follow up Allergies No Known Allergies Allergy (Verified 09/01/24 08:38) Medication List - Last Reconciled 09/01/24 by Kerwin Stockton MD atorvastatin 40 mg PO DAILY 90 days bisacodyl (Dulcolax (bisacodyl)) 20 mg (4 x 5 mg) PO ONCE PRN 1 day blood-glucose sensor (FreeStyle Theo 3 Sensor device) As directed clotrimazole-betamethasone 1-0.05 % 1 appl topical BID 4 weeks gemfibrozil 600 mg PO BID glipizide 10 mg PO BID 90 days metformin 1000 mg a.m. and 750 mg p.m. orally 2 times a day; 90 days polyethylene glycol 3350 (Miralax) 17 grams PO DAILY PRN polyethylene glycol 3350 (Miralax) 238 grams PO ONCE PRN 1 day semaglutide (Ozempic) 1 mg (0.75 mL) subcut QWEEK 28 days Tobacco use date assessed: 01/18/24 Dental Screening Dental Screen Date: 03/28/24 HPI f/u diabetes, chronic conditions HPI Details 54 y/o male presents to f/u diabetes, low HDL, chronic conditions. Last A1c 05/30/24 5.9%. A1c today 6.1%. He is on glipizide 10mg b.i.d, metfomrin, Ozempic. Has been trying to exercise regularly. HPI Comments History of Present Illness Details Documentation assistance for Kerwin Stockton MD, was provided by Jaden Carrizales, Burnishing Machine Operator on 09/01/2024 at 8:49 AM EST. I, Dr. Stockton, have read, observed, and verified documentation. [facility] Medical History Diabetes Surgical History Hx of colonoscopy No pertinent past surgical history Family History Father No problems noted. Mother Diabetes mellitus Brother No problems noted. Brother No problems noted. Sister No problems noted. Sister No problems noted. Daughter No problems noted. Daughter No problems noted. 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 1. Little interest or pleasure in doing things: not at all 2. Feeling down, depressed, or hopeless: not at all 3. Trouble falling or staying asleep, or sleeping too much: not at all 4. Feeling tired or having little energy: not at all 5. Poor appetite or overeating: not at all 6. Feeling bad about yourself - or that you are a failure or have let yourself or your family down: not at all 7. Trouble concentrating on things, such as reading the newspaper or watching television: not at all 8. Moving or speaking so slowly that other people could have noticed. Or the opposite - being so fidgety or restless that you have been moving around a lot more than usual: not at all 9. Thoughts that you would be better off or of hurting yourself in some way: not at all Total score: 0 Source: Developed by Drs. Liam Momin, Ericka Montesinos, Moses Anand and colleagues, with an educational tai from [employer]. Thrive Questionnaire Date Thrive assessed: 10/19/23 I am a: Patient What is your living situation today?: I have a steady place to live Within the past 12 months, did the food you bought not last and you didn't have the money to get more?: Never true Within the past 12 months, did you worry whether your food would run out before you got money to buy more?: Never true Do you have trouble paying for medicines?: No Do you have trouble getting transportation to medical appointments?: No Do you have trouble paying your heating and electricity bill?: No Do you have trouble taking care of your child, family member or friend?: No Do you have trouble with day-to-day activities such as bathing, preparing meals, shopping, managing finances, etc.?: No Are you currently unemployed and looking for a job?: No Are you interested in more education?: No Please select the resources that you would like help with: None Currently or been in a relationship where the following occur: No concerns reported THRIVE Score: 0 AUDIT C Alcohol Use Questionnaire (AUDIT-C) 1. How often do you have a drink containing alcohol?: 2-4 times a month 2. How many drinks containing alcohol do you have on a typical day when you are drinking?: 1 or 2 3. How often do you have six or more drinks on one occasion?: Never Total Score: 2 MELINA-7 AMB Questionnaire MELINA-7 Date MELINA - 7 assessed: 10/19/23 Feeling nervous, anxious, or on edge: 0 = Not at all Not being able to stop or control worryin = Not at all Worrying too much about different things: 0 = Not at all Trouble relaxin = Not at all Being so restless that it is hard to sit still: 0 = Not at all Becoming easily annoyed or irritable: 0 = Not at all Feeling afraid as if something awful might happen: 0 = Not at all Total MELINA-7 score (0-4 normal; 5-9 mild; 10-14 moderate; 15-21 severe): 0 Source: Developed by Drs. Liam Momin, Ericka Montesinos, Moses Anand and colleagues, with an educational tai from [employer]. Review of Systems Const Denies chills, Denies fatigue, Denies fever(s), Denies headache(s) and Denies weakness ENT Denies dizziness and Denies headache(s) Card Denies dyspnea Resp Denies cough, Denies dyspnea, Denies wheezing and Denies other (shortness of breath) Musc Denies numbness and Denies tingling Neuro Denies dizziness, Denies headache(s), Denies numbness, Denies tingling and Denies weakness Psych Denies anxiety and Denies depression Endo Denies fatigue Aller/Immun Denies wheezing Physical exam (Primary Care) Vital Signs: Last Vital Signs Temp 98.9 F 09/01/24 08:39 Pulse 74 09/01/24 08:39 Resp 16 09/01/24 08:39 BP 120/68 09/01/24 08:39 Pulse Ox 95 09/01/24 08:39 Oxygen Delivery Method Room Air 09/01/24 08:39 BMI result Body Mass Index 35.2 Tobacco/Smoking Status: Tobacco use Status Tobacco use date assessed 01/18/24 09/01/24 08:42 Patient Tobacco Use Status Former Tobacco user 09/01/24 08:42 Tobacco use type Cigarette 09/01/24 08:42 e-Cigarette/Vaping Use Never Used 09/01/24 08:42 PHQ-9: PHQ-9 Score PHQ-9: Total score 0 09/01/24 08:42 Thrive Assessment: Date of Thrive Assessment Date Thrive assessed 10/19/23 09/01/24 08:42 Currently or been in a relationship where the following occur: No concerns reported Const General: well developed; No acute distress Nutritional Appearance: well nourished Orientation/consciousness: patient oriented x3 HENMT Head: Yes normocephalic and Yes atraumatic Eyes General: appearance normal, both eyes and all related structures Pupils: Equal, round and reactive pupils present EOM: EOMs intact bilaterally Resp Effort & Inspection: normal respiratory effort Auscultation: clear to auscultation bilaterally Cardio Rate: regular rate Rhythm: regular rhythm Heart sounds: S1 normal heart sound present, S2 normal heart sound present, no gallops, no murmurs and no rubs Neuro General: patient oriented x3 and gait normal Cranial nerves: Yes Equal, round and reactive pupils present Psych Affect: normal affect Coding Level of Care Code Est Pt Level 3 (89044) Diagnoses Diabetes type 2, controlled E11.9 Low HDL (under 40) E78.6 Assessment & Plan Assessment & Plan (1) Diabetes type 2, controlled: Code(s): E11.9 - Type 2 diabetes mellitus without complications Category: Medical Plan: A1c?is?6.1%?today.??Goal?is?less?than?7% Controlled Will?increase?Ozempic?from?1?mg?weekly?to?2?mg?weekly Can?decrease?glipizide?from 10?mg?b.i.d.?to?5?mg?b.i.d. Continue?metformin?as?prescribed Patient?had?eye?exam?in?March.??I?am?requesting?report (2) Low HDL (under 40): Code(s): E78.6 - Lipoprotein deficiency Category: Medical Plan: Following?his?lipids He?has?been?working?on?exercise Check?labs Will?call?if?action?is?required,?otherwise?will?review?at?next?visit Medications: Changed From glipizide 10 mg PO BID 90 days 180 tabs 3RF To glipizide 5 mg PO BID 90 days 180 tabs 3RF From semaglutide (Ozempic) 1 mg (0.75 mL) subcut QWEEK 28 days 3 mL 3RF E78.6 - Lipoprotein deficiency To semaglutide 2 mg (0.75 mL) subcut QWEEK 28 days 3 mL 3RF E78.6 - Lipoprotein deficiency Refilled metformin 1000 mg a.m. and 750 mg p.m. orally 2 times a day; 90 days 315 tabs 3RF atorvastatin 40 mg PO DAILY 90 days 90 tabs 4RF
[2024-09-01 08:39] VITALS: BP 120/68; PULSE 74; RESP 16; TEMP 37.2; O2SAT 95; BMI 35.2
== END 2024-09-01 08:57 | disposition home or self-care (01) ==
PROVIDERS: PCP Family Medicine; Visit Provider Family Medicine
DX: E11.9 Type 2 diabetes mellitus without complications (principal); E78.6 Lipoprotein deficiency; E11.65 Type 2 diabetes mellitus with hyperglycemia

== ENCOUNTER → 2024-09-01 08:16 | Outpatient (BNVA) | payer OTHER, SELFPAY | PROVIDERS: PCP Family Medicine; Visit Provider Family Medicine | DX: E11.9 Type 2 diabetes mellitus without complications (principal); E78.6 Lipoprotein deficiency; Z79.84 Long term (current) use of oral hypoglycemic drugs; Z79.899 Other long term (current) drug therapy | CPT/HCPCS: 83036; 96127 ==

== ENCOUNTER 2024-09-01 09:05 | Outpatient (REF) | payer OTHER, SELFPAY ==
[2024-09-01 11:11] LABS: Alanine Aminotransferase 29 U/L (0-40); Albumin Level 4.5 g/dL (3.5-5.0); Alkaline Phosphatase 68 U/L (39-117); Anion Gap 9 (12-20); Aspartate Amino Transferase 30 U/L (5-37); Bilirubin Total 0.4 mg/dL (0.0-1.0); Blood Urea Nitrogen 16 mg/dL (9-16); Calcium 9.2 mg/dL (8.4-10.2); Carbon Dioxide 24 mmol/L (22-29); Chloride 109 mmol/L (96-108); Cholesterol 114 mg/dL (<200); Estimated Glomerular Filt Rate > 60; Glucose Fasting 119 mg/dL (60-99); HDL Cholesterol 36 mg/dL (>40); LDL Cholesterol Calculated 69 mg/dL (<100); Potassium 4.7 mmol/L (3.3-5.1); Sodium 137 mmol/L (135-145); Total Protein 7.4 g/dL (6.5-8.0); Triglycerides 49 mg/dL (<150)
== END 2024-09-01 09:06 | disposition home or self-care (01) ==
LOC: HO.WFDLDS 09:05
PROVIDERS: Visit Provider Family Medicine
DX: Z00.00 Encounter for general adult medical examination without abnormal findings (principal); E78.6 Lipoprotein deficiency
CPT/HCPCS: 36415; 80053; 80061

== ENCOUNTER 2024-09-27 11:17 | Day surgery (SDC) | payer OTHER, SELFPAY ==
--- NOTE | 2024-09-26 09:27 | HO.ANESPROP2 ---
Documented by User: Kristie Johns NP 09/26/24 09:28 HPI - Anesthesia Eval Consult details Narrative: 54yo M for Circumcision Anesthesia Pre-Procedure Meds Is the patient on any of the following meds?: GLP1/DPP4 PMFSH Active Problems Active Problems: All Active Problems Phimosis (Acute) Low HDL (under 40) (Acute) Balanitis (Acute) Nasal polyp (Acute) Hyperlipidemia (Acute) Hemorrhoids (Acute) Tubular adenoma of colon (Acute) Skin tag (Acute) Screening for prostate cancer (Acute) Screening for colon cancer (Acute) Adult general medical exam (Acute) Sciatica (Acute) Diabetes type 2, uncontrolled (Acute) Tendonitis (Acute) Elevated blood pressure reading without diagnosis of hypertension (Acute) Diabetes type 2, controlled (Acute) Past Medical History Medical History Hyperlipidemia Diabetes Family History Family History Father No problems noted. Mother Diabetes mellitus Brother No problems noted. Brother No problems noted. Sister No problems noted. Sister No problems noted. Daughter No problems noted. Daughter No problems noted. Family history of problems with anesthesia: No Surgical History Surgical History (Updated 09/27/24 @ 11:51 by Edilia Campbell RN) History of dental surgery Hx of colonoscopy No pertinent past surgical history History of Problems with Anesthesia: No Social History Social History Household Members: Spouse and Family Household Members Other:: , step daughter, mother in law Housing: House Alcohol intake: current Alcohol intake frequency: holidays/special occasions only Patient Tobacco Use Status: Former Tobacco user Tobacco use type: Cigarette e-Cigarette/Vaping Use: Never Used Second Hand Smoke Exposure: No Use of substances other than those prescribed or required for medical reasons: No Are you DNR?: No Advance Directives: No Advance Directives Information Provided: Yes service: No Current occupational status: employed 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 Mother Diabetes mellitus Brother No problems noted. Brother No problems noted. Sister No problems noted. Sister No problems noted. Daughter No problems noted. Daughter No problems noted. Surgical History Surgical History (Updated 09/27/24 @ 11:51 by Edilia Campbell RN) History of dental surgery Hx of colonoscopy No pertinent past surgical history Social History Social History Household Members: Spouse and Family Household Members Other:: , step daughter, mother in law Housing: House Alcohol intake: current Alcohol intake frequency: holidays/special occasions only Patient Tobacco Use Status: Former Tobacco user Tobacco use type: Cigarette e-Cigarette/Vaping Use: Never Used Second Hand Smoke Exposure: No Use of substances other than those prescribed or required for medical reasons: No Are you DNR?: No Advance Directives: No Advance Directives Information Provided: Yes service: No Current occupational status: employed 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 and Plan Disposition: Standard PACU
[2024-09-27 11:53] VITALS: BMI 35.1
[2024-09-27 12:00] VITALS: BP 133/64; PULSE 69; RESP 15; TEMP 36.3; O2SAT 98
[2024-09-27] MEDS: Lactated Ringers 1,000 ML 100 ML IVCONT (12:11)
[2024-09-27 12:20] LABS: Glucose, Whole Blood 92 mg/dL (60-115)
--- NOTE | 2024-09-27 14:25 | MHC.SHP ---
Pre-Procedural Eval Section A - 24 Hr Update-Section A only Date of Service: 09/27/24 The patient is an INPATIENT: No The patient has been examined within 24 hours of the surgical procedure. The History & Physical has been completed within 30 days and I have reviewed it.: Yes Section B - Complete if H&P > 30 days Chief Complaint: Balanitis Allergies: Allergies Allergy/AdvReac Type Severity Reaction Status Date / Time No Known Allergies Allergy Verified 09/27/24 12:20 Plan Diagnosis/Plan: Unchanged I have reviewed the history and physical and performed a pertinent physical examination on my patient. No changes have occurred unless specified. Circumcision. Time Spent With Patient Time: Total time managing care of this patient today ____ minutes.
--- NOTE | 2024-09-27 16:19 | W.PM.OPN ---
Operative Note Operative Note Date of Service: 09/27/24 Narrative: PreOperative Diagnosis:? ? Balanitis, phimosis Post Operative Diagnosis:?Balanitis, phimosis Procedure:?Circumcision Surgeon:?Dr Olivier Cardona Anesthesia:? General Procedure: After informed consent was verified the patient was brought to the operating room and placed in a supine position.? Anesthesia was performed per protocol. The patient was prepped and draped in the usual sterile fashion. Safety pause time-out was performed. Antibiotics confirmed. Penile block was performed. The foreskin could not be retracted due to phimosis. Dorsal Slit was done at the 12 oclock position on the dorsal aspect. With the foreskin over the glans a circumferential incision is made at the level of the crespo. The fore skin was then retracted and a circumferential incision was made 0.5 cm below the crespo. There was inflammatory changes on the glans and foreskin. The foreskin wasremoved with cautery. The skin was closed in 4 quadrants with 4-0 chromic, each quadrant closed in running fashion 4-0 chromic, bacitracin ointment was used over the incision and incision covered with cling. The patient tolerated the procedure well and was transferred to the recovery area upon completion. Complications: None
[2024-09-27 16:30] VITALS: BP 132/85; PULSE 77; RESP 16; TEMP 36.6; O2SAT 97
[2024-09-27 16:35] VITALS: BP 128/71; PULSE 68; RESP 16; O2SAT 98
[2024-09-27 16:40] VITALS: BP 140/83; PULSE 72; RESP 16; O2SAT 98
[2024-09-27 16:45] VITALS: BP 144/91; PULSE 73; RESP 16; O2SAT 97
[2024-09-27 17:00] VITALS: BP 155/68; PULSE 71; RESP 20; TEMP 36.8; O2SAT 96
== END 2024-09-27 17:10 | disposition home or self-care (01) ==
PROVIDERS: PCP Family Medicine; Visit Provider Urology
PROC: (CPT 54161; principal; 2024-09-27 13:30)
DX: N48.1 Balanitis (principal); N47.1 Phimosis; E11.9 Type 2 diabetes mellitus without complications; E78.5 Hyperlipidemia, unspecified; Z79.84 Long term (current) use of oral hypoglycemic drugs; Z79.85 Long-term (current) use of injectable non-insulin antidiabetic drugs; Z79.899 Other long term (current) drug therapy; Z87.891 Personal history of nicotine dependence
CPT/HCPCS: 54161; 82947; 88304; J0690; J2003; J2405; J2704; J2795; J3010

== ENCOUNTER → 2024-09-27 11:17 | Outpatient (BNV) | payer OTHER, SELFPAY | PROVIDERS: PCP Family Medicine; Visit Provider Urology | DX: N48.1 Balanitis (principal) | CPT/HCPCS: 54161 ==

== ENCOUNTER 2025-01-09 11:08 | Outpatient (AMB) | payer OTHER, SELFPAY ==
--- NOTE | 2025-01-09 11:36 | A.OFFPC_ITS ---
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 and 750 mg p.m. orally 2 times a day; 90 days polyethylene glycol 3350 (Miralax) 17 grams PO DAILY PRN polyethylene glycol 3350 (Miralax) 238 grams PO ONCE PRN 1 day semaglutide 2 mg (0.75 mL) subcut QWEEK 28 days Tobacco use date assessed: 01/18/24 Dental Screening Dental Screen Date: 03/28/24 HPI f/u diabetes HPI Details 54 y/o male presents to /u diabetes, w HDL. Prior A1c in August 6.1%. A1c today 01/09/25 is 5.6%. He is on glipizide, metformin, Ozempic. Last eye exam March showed no diabetic retinopathy. [facility] Medical History Hyperlipidemia Diabetes Surgical History (Updated 09/27/24 @ 11:51 by Edilia Campbell RN) History of dental surgery Hx of colonoscopy No pertinent past surgical history Family History Father No problems noted. Mother Diabetes mellitus Brother No problems noted. Brother No problems noted. Sister No problems noted. Sister No problems noted. Daughter No problems noted. Daughter No problems noted. 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 [employer] Current occupational exposures/hazards: No Cognitive needs: No Hearing needs: No Vision needs: No Questionnaire Thrive Questionnaire Date Thrive assessed: 09/01/24 I am a: Patient What is your living situation today?: I have a steady place to live Within the past 12 months, did the food you bought not last and you didn't have the money to get more?: Never true Within the past 12 months, did you worry whether your food would run out before you got money to buy more?: Never true Do you have trouble paying for medicines?: No Do you have trouble getting transportation to medical appointments?: No Do you have trouble paying your heating and electricity bill?: No Do you have trouble taking care of your child, family member or friend?: No Do you have trouble with day-to-day activities such as bathing, preparing meals, shopping, managing finances, etc.?: No Are you currently unemployed and looking for a job?: No Are you interested in more education?: No Please select the resources that you would like help with: None Currently or been in a relationship where the following occur: No concerns reported THRIVE Score: 0 MELINA-7 AMB Questionnaire MELINA-7 Date MELINA - 7 assessed: 10/19/23 Source: Developed by Drs. Liam Momin, Ericka Montesinos, Moses Anand and colleagues, with an educational tai from [employer]. Review of Systems Const Denies chills, Denies fatigue, Denies fever(s), Denies headache(s) and Denies weakness ENT Denies dizziness and Denies headache(s) Card Denies dyspnea Resp Denies cough, Denies dyspnea, Denies wheezing and Denies other (shortness of breath) Musc Denies numbness and Denies tingling Neuro Denies dizziness, Denies headache(s), Denies numbness, Denies tingling and Denies weakness Psych Denies anxiety and Denies depression Endo Denies fatigue Aller/Immun Denies wheezing Physical exam (Primary Care) Vital Signs: Last Vital Signs Temp 98.7 F 01/09/25 11:44 Pulse 81 01/09/25 11:44 Resp 14 01/09/25 11:44 BP 120/76 01/09/25 11:44 Pulse Ox 97 01/09/25 11:44 Oxygen Delivery Method Room Air 01/09/25 11:44 BMI result Body Mass Index 33.4 Tobacco/Smoking Status: Tobacco use Status Tobacco use date assessed 01/18/24 01/09/25 11:49 Patient Tobacco Use Status Former Tobacco user 01/09/25 11:49 Tobacco use type Cigarette 01/09/25 11:49 e-Cigarette/Vaping Use Never Used 01/09/25 11:49 Thrive Assessment: Date of Thrive Assessment Date Thrive assessed 09/01/24 01/09/25 11:49 Currently or been in a relationship where the following occur: No concerns reported Const General: well developed; No acute distress Nutritional Appearance: well nourished Orientation/consciousness: patient oriented x3 [facility]: Yes normocephalic and Yes atraumatic Eyes General: appearance normal, both eyes and all related structures Pupils: Equal, round and reactive pupils present EOM: EOMs intact bilaterally Resp Effort & Inspection: normal respiratory effort Neuro General: patient oriented x3 and gait normal Cranial nerves: Yes Equal, round and reactive pupils present Psych Affect: normal affect Coding Level of Care Code Est Pt Level 3 (49249) Diagnoses Diabetes type 2, controlled E11.9 Assessment & Plan Assessment & Plan (1) Diabetes type 2, controlled: Code(s): E11.9 - Type 2 diabetes mellitus without complications Category: Medical Plan: Patient?presents?for?follow-up?diabetes. He?is?taking?his?diabetes?medications?as?prescribed without?any?problems. He?has?a?continuous?glucose?monitor.??No?recent?hy perglycemic?or?hypoglycemic?events. No?evidence?of?end- organ?damage?or?diabetes?complications?such?as?renal?disease,?nephropathy,?prote inuria?or?nephrotic?syndrome. No?cardiovascular?disease No?peripheral?neuropathy?or?autonomic?neuropathy. No?lower?limb?ulcerations,?amputations?or?skin?problems. No?diabetic?retinopathy.??Most?recent?exam?March?2023.??Up-to-date. A1c?today?5.6%.??Good?control.??Goal?is?less?than?7.0% Continue?current?medication?regimen. Continue?diabetic?diet Continue continuous?glucose?monitoring Continue?exercise Orders: Orders Microalbumin, Random (w Creat) Today E11.65 - Type 2 diabetes mellitus with hyperglycemia, I10 - Essential (primary) hypertension Lipid Panel Today E78.5 - Hyperlipidemia, unspecified, Z00.00 - Encounter for general adult medical examination without abnormal findings Comprehensive Evarts. Panel Fast Today E78.5 - Hyperlipidemia, unspecified, Z00.00 - Encounter for general adult medical examination without abnormal findings TSH reflex Free T4 Today E11.65 - Type 2 diabetes mellitus with hyperglycemia, Z00.00 - Encounter for general adult medical examination without abnormal findings UA CC w/rflx Micro + Cult Today E11.65 - Type 2 diabetes mellitus with hyperglycemia, Z00.00 - Encounter for general adult medical examination without abnormal findings
[2025-01-09 11:44] VITALS: BP 120/76; PULSE 81; RESP 14; TEMP 37.1; O2SAT 97; BMI 33.4
== END 2025-01-09 12:30 | disposition home or self-care (01) ==
LOC: HO.HMCFM 11:09
PROVIDERS: PCP Family Medicine; Visit Provider Family Medicine
DX: E11.65 Type 2 diabetes mellitus with hyperglycemia (principal)

== ENCOUNTER → 2025-01-09 11:08 | Outpatient (BNVA) | payer OTHER, SELFPAY | PROVIDERS: PCP Family Medicine; Visit Provider Family Medicine | DX: E11.9 Type 2 diabetes mellitus without complications (principal); Z79.84 Long term (current) use of oral hypoglycemic drugs | CPT/HCPCS: 83036 ==

== ENCOUNTER 2025-06-22 08:21 | Outpatient (AMB) | payer OTHER, SELFPAY ==
--- NOTE | 2025-06-22 08:35 | MHC.PC.OV ---
Vital Signs 06/22/25 08:39 Height 5 ft 7 in Weight 229 lb 2 oz BMI 35.9 BP 120/60 Blood Pressure Location Rt brachial Position Sitting Respiration 16 Pulse 93 Pulse Source Pulse Oximeter Temp 98.5 F Temp Source Oral Pulse Oximetry (%) 96 Oxygen Delivery Method Room Air Intake Visit Reasons: skin tags, 15 minutes - see comments Intake Note: patient is scheduled to discuss possible skin tag removal under Lft and RT arm Brick Wheeler Required: No Allergies No Known Allergies Allergy (Verified 06/22/25 08:38) Tobacco use date assessed: 01/18/24 Dental Screening Dental Screen Date: 03/28/24 HPI skin tags, 15 minutes - see comments HPI Details 55 y/o male presents with complaints of skin tags. A1c today 06/22/25 6.0%. He is on glipizide 5mg b.i.d, metformin, semaglutide 2mg. [facility] Medical History Hyperlipidemia Diabetes Surgical History (Updated 09/27/24 @ 11:51 by Edilia Campbell RN) History of dental surgery Hx of colonoscopy No pertinent past surgical history Family History Father No problems noted. Mother Diabetes mellitus Brother No problems noted. Brother No problems noted. Sister No problems noted. Sister No problems noted. Daughter No problems noted. Daughter No problems noted. 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 Current occupational exposures/hazards: No Cognitive needs: No Hearing needs: No Vision needs: No Questionnaire Thrive Questionnaire Date Thrive assessed: 09/01/24 I am a: Patient What is your living situation today?: I have a steady place to live Within the past 12 months, did the food you bought not last and you didn't have the money to get more?: Never true Within the past 12 months, did you worry whether your food would run out before you got money to buy more?: Never true Do you have trouble paying for medicines?: No Do you have trouble getting transportation to medical appointments?: No Do you have trouble paying your heating and electricity bill?: No Do you have trouble taking care of your child, family member or friend?: No Do you have trouble with day-to-day activities such as bathing, preparing meals, shopping, managing finances, etc.?: No Are you currently unemployed and looking for a job?: No Are you interested in more education?: No Please select the resources that you would like help with: None Currently or been in a relationship where the following occur: No concerns reported THRIVE Score: 0 MELINA-7 AMB Questionnaire MELINA-7 Date MELINA - 7 assessed: 10/19/23 Source: Developed by Drs. Liam Momin, Ericka Montesinos, Moses Anand and colleagues, with an educational tai from [employer]. Review of Systems Const Denies chills, Denies fatigue, Denies fever(s), Denies headache(s) and Denies weakness ENT Denies dizziness and Denies headache(s) Card Denies dyspnea Resp Denies cough, Denies dyspnea, Denies wheezing and Denies other (shortness of breath) Musc Denies numbness and Denies tingling Neuro Denies dizziness, Denies headache(s), Denies numbness, Denies tingling and Denies weakness Psych Denies anxiety and Denies depression Endo Denies fatigue Aller/Immun Denies wheezing Physical exam (Primary Care) Vital Signs: Last Vital Signs Temp 98.5 F 06/22/25 08:39 Pulse 93 06/22/25 08:39 Resp 16 06/22/25 08:39 BP 120/60 06/22/25 08:39 Pulse Ox 96 06/22/25 08:39 Oxygen Delivery Method Room Air 06/22/25 08:39 BMI result Body Mass Index 35.9 Tobacco/Smoking Status: Tobacco use Status Tobacco use date assessed 01/18/24 06/22/25 08:37 Patient Tobacco Use Status Former Tobacco user 06/22/25 08:37 Tobacco use type Cigarette 06/22/25 08:37 e-Cigarette/Vaping Use Never Used 06/22/25 08:37 Thrive Assessment: Date of Thrive Assessment Date Thrive assessed 09/01/24 06/22/25 08:37 Currently or been in a relationship where the following occur: No concerns reported Const General: well developed; No acute distress Nutritional Appearance: well nourished Orientation/consciousness: patient oriented x3 [facility] Head: Yes normocephalic and Yes atraumatic Eyes General: appearance normal, both eyes and all related structures Pupils: Equal, round and reactive pupils present EOM: EOMs intact bilaterally Resp Effort & Inspection: normal respiratory effort Skin Other: 1 cm skin tag R axilla, 1 mm skin tag L axilla Neuro General: patient oriented x3 and gait normal Cranial nerves: Yes Equal, round and reactive pupils present Psych Affect: normal affect Results AMB Hemoglobin A1c AMB Hemoglobin A1c 6.6 % Last Edit by PHILLIP Amezcua on 06/22/25 09:01 Coding Level of Care Code Est Pt Level 3 (60309) Diagnoses Skin tag L91.8 Diabetes type 2, controlled E11.9 Assessment & Plan Assessment & Plan (1) Skin tag: Code(s): L91.8 - Other hypertrophic disorders of the skin Category: Medical Plan: Patient underwent 3 cycles of freeze/thaw cryotherapy at bilateral axillae 1 cm skin tag at right axilla and 1 mm skin tag left axilla Patient tolerated procedure well Much for S/S of infection which were reviewed with the patient. Call or return to office if not completely resolved or for a concerns. (2) Diabetes type 2, controlled: Code(s): E11.9 - Type 2 diabetes mellitus without complications Category: Medical Plan: A1c today: 6.0%. Good control. Goal is less than 7.0% Continue current medication Maintain diabetic diet and weight control Orders: Orders AMB Hemoglobin A1c Today E11.9 - Type 2 diabetes mellitus without complications
[2025-06-22 08:39] VITALS: BP 120/60; PULSE 93; RESP 16; TEMP 36.9; O2SAT 96; BMI 35.9
== END 2025-06-22 09:32 | disposition home or self-care (01) ==
LOC: HO.HMCFM 08:22
PROVIDERS: PCP Family Medicine; Visit Provider Family Medicine
DX: L91.8 Other hypertrophic disorders of the skin (principal); E11.9 Type 2 diabetes mellitus without complications

== ENCOUNTER → 2025-06-22 08:21 | Outpatient (BNVA) | payer OTHER, SELFPAY | PROVIDERS: PCP Family Medicine; Visit Provider Family Medicine | DX: E11.9 Type 2 diabetes mellitus without complications (principal); L91.8 Other hypertrophic disorders of the skin | CPT/HCPCS: 83036 ==